=== PATIENT | male | born 1970 | race Caucasian/White ===

== ENCOUNTER 2023-02-25 18:40 | Inpatient (IN) ==
[2023-02-25] MEDS ORDERED: PANTOprazole 40 MG in DEXTROSE 5% MINI-B 100 ML IV STA (19:20)
[2023-02-25] MEDS ORDERED: FAMOTIDINE 20MG IV PUSH 20 MG/5 ML SYR IV STA (19:20)
[2023-02-25] MEDS ORDERED: SODIUM CHLORIDE 0.9% 1,000 ML IV STA (19:20)
[2023-02-25] MEDS ORDERED: PANTOprazole 80 MG in DEXTROSE 5% 100 ML IV ONE (19:20)
[2023-02-25] MEDS ORDERED: PANTOprazole 80 MG in DEXTROSE 5% 100 ML IV STA (19:20)
[2023-02-25 19:28] LABS: Hematocrit (blood only) 32.8 % (42.0-52.0); Hemoglobin 10.9 g/dl (14.0-18.0); Mean Corpuscular Hemoglobin 30.5 pg (25.0-34.0); Mean Corpuscular Hgb Conc 33.2 g/dL (32.0-36.0); Mean Corpuscular Volume 91.9 fL (80.0-100.0); Mean Platelet Volume 9.9 fL (9.4-12.4); Platelet Count 342 K/uL (130-400); RDW Coefficient of Variation 12.7 % (11.5-14.5); RDW Standard Deviation 42.1 fL (36.4-46.3); Red Blood Count 3.57 M/uL (4.70-6.10)
[2023-02-25] MEDS ORDERED: SODIUM CHLORIDE 0.9% 500 ML IV SCH (19:30)
[2023-02-25 19:43] LABS: Albumin Globulin Ratio 1.5 (0.9-2); Albumin Level 3.7 gm/dl (3.4-5.0); BUN Creatinine Ratio 60.4 (10-20); Bilirubin,Total 0.3 mg/dl (0.2-1.0); Calcium 8.6 mg/dl (8.6-10.3); Creatinine Clr Calc Pharmacy 91.1 ml/min; Est GFR (African American) 93.1 ml/min; Est GFR (Non-African American) 80.3 ml/min; Globulin 2.5 gm/dl (2.5-4.0); Potassium 4.7 mmol/L (3.5-5.1); Total Protein 6.2 gm/dl (6.0-8.3)
[2023-02-25] MEDS ORDERED: PANTOprazole 40 MG in DEXTROSE 5% MINI-B 100 ML IV SCH (19:45)
[2023-02-25 19:51] LABS: Basophils # (auto) 0.08 K/uL (0.00-0.20); Basophils % (auto) 0.5 %; Eosinophils # (auto) 0.07 K/uL (0.00-0.50); Eosinophils % (auto) 0.5 %; Immature Granulocytes # (auto) 0.16 K/uL (0.01-0.20); Immature Granulocytes % (auto) 1.1 %; Lymphocytes # (auto) 4.14 K/uL (1.20-3.40); Lymphocytes % (auto) 27.6 %; Monocytes # (auto) 0.91 K/uL (0.11-0.59); Monocytes % (auto) 6.1 %; Neutrophils # (auto) 9.64 K/uL (1.40-6.50); Neutrophils % (auto) 64.2 %
--- NOTE | 2023-02-25 20:04 | Emergency Department Note ---
Impression & Plan Acute upper gastrointestinal bleeding, Syncope and collapse, Acute upper abdominal pain ED Provider Note NAME: DEMOND MANN AGE: 52 SEX: Male INFORMANT: Patient ED PROVIDER(S): Juliocesar Waters MD CHIEF COMPLAINT: Seizure-like activity PLAN: Disposition: Admitted Outpatient prescription management: none Referral: None MEDICAL DECISION MAKING: patient presented because of An unwitnessed episode of passing out with possibly some shaking. Patient states he did feel lightheaded prior to the event. Does not remember the event itself. He does note having some dark stools recently and because of this he was monitored. ECG performed and did not reveal any ischemia. Patient was borderline tachycardic on cardiac monitoring and his blood pressure was hypotensive initially. Patient states he normally is very hypertensive. Rectal examination was Hemoccult positive and stools were dark. Patient had abdominal pain on examination. He was started on IV fluids. The patient was given IV Pepcid and an IV Protonix bolus and drip. Patient was typed and screened. CT imaging of the abdomen pelvis was ordered. This did raise concerns about positive ulcer without perforation. Patient will need further management in the hospital. He was reassessed and was hemodynamically stable. Consultation was made with Dr. Aleks Hernandez, [facility] hospitalist service. Patient was evaluated in the ER admitted for further management. 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 Vital Signs: reviewed and remarkable for borderline tachycardia Additional History obtained from: none Chronic Medical/Social Conditions affecting care: Mood disorder, hypertension Prior/ Outside/ External records reviewed: none Differential Diagnosis: Vasovagal event, dehydration, infection, hypoglycemia, electrolyte abnormalities, cardiac sources, intracerebral event, pulmonary embolism, seizure, toxicologic, neurologic, as well as other pathologies. Diagnostics, independently interpreted by me: EC Lead ECG performed and revealed Normal sinus rhythm at 100, normal [place], QRS normal. No elevation or depression. No PACs or PVCs Cardiac Monitoring: Cardiac monitoring ordered by me: The patient was placed on continuous cardiac monitoring and observed. It revealed a normal sinus rhythm at 98 beats per minute without ectopy or evidence of dysrhythmia. Medical decision rules: none Imaging studies: CT scan as above. Findings concerning for possible ulcer without signs of perforation. HPI: 52 year old Male arrives for evaluation of possible seizure-like episode. Patient had an episode where he fell out and was unconscious. Patient states he was told that he had some shaking-like movements when he was found by staff. Patient is currently an inpatient voluntarily at the [facility]. Patient does note a history of ulcers but denies any prior EGD or surgery. Patient states he has not been using a lot of NSAIDs. He is not on any blood thinners. He has had dark stools recently. He did note some upper abdominal pain today. Pt denies LOC, headache, fevers, chills, diaphoresis, visual changes, neck pain, chest pain, breathing difficulties, nausea, vomiting, back pain, hematochezia, urinary symptoms, numbness, weakness, lymphadenopathy, rash, or other complaints.. PAST MEDICAL HISTORY: See Below, hypertension PAST SURGICAL HISTORY: See Below, SOCIAL HISTORY: See Below, prior methamphetamine use HOME MEDICATIONS: See Below ALLERGIES: See Below VITALS: See Below PHYSICAL EXAMINATION: GENERAL: Awake, alert, well-appearing, in no distress HENT: Normocephalic, atraumatic. Oropharynx unremarkable. EYES: Normal conjunctiva. Sclera non-icteric. NECK: Inspection normal. Non-tender. Supple. No nuchal rigidity. FROM. No masses. RESPIRATORY: Clear to auscultation. No wheezes. No rales. Normal respiratory effort. CARDIAC: Borderline tachycardic rate. Normal rhythm. No murmurs. No rubs. Extremities warm and well perfused. Pulses equal. No JVD. GI: Soft, non-distended. No tenderness to palpation. No rebound or guarding. No masses. RECTAL: Dark stool. Hemoccult positive. MUSCULOSKELETAL: Atraumatic. Chest examination reveals no tenderness. The back is symmetrical on inspection without obvious abnormality. There is no CVA tenderness to palpation. No joint edema. LOWER EXTREMITIES: Calves are equal size bilaterally and non-tender. No edema. No discoloration. NEURO: Normal sensorium. No sensory or motor deficits noted. SKIN: No rash or jaundice noted. PROCEDURES: none CRITICAL CARE: I have personally spent 35 minutes of critical care time in the direct management of this patient. This includes bedside care, interpretation of diagnostic studies, and testing, discussion with consultants, patient, and other required patient management activities. These minutes are in excess of all separately billable procedures. OBSERVATION NOTE: none Past Med/Surg History Social History Smoking Status: Unknown if ever smoked Allergies Allergies Allergy/AdvReac Type Severity Reaction Status Date / Time No Known Allergies Allergy Verified 02/25/23 19:01 Home Meds Home Medications Medication Instructions Recorded Confirmed acetaminophen 325 mg tablet 487.5 mg PO TID PRN Pain 02/25/23 02/25/23 (Tylenol) amlodipine 2.5 mg tablet 2.5 mg PO DAILY 02/25/23 02/25/23 aspirin 81 mg chewable tablet 81 mg PO DAILY 02/25/23 02/25/23 escitalopram oxalate 10 mg tablet 10 mg PO DAILY 02/25/23 02/25/23 (Lexapro) glipizide 5 mg tablet 5 mg PO DAILY 02/25/23 02/25/23 lisinopril 2.5 mg tablet 7.5 mg PO DAILY 02/25/23 02/25/23 metformin 1,000 mg tablet 1,000 mg PO BIDM 02/25/23 02/25/23 nicotine 21 mg/24 hr daily 1 patch transdermal DAILY 02/25/23 02/25/23 transdermal patch trazodone 150 mg tablet 150 mg PO HS 02/25/23 02/25/23 Results & Data (ED) Vital Signs Vital Signs - 24 hr 02/25/23 18:50 02/25/23 19:32 02/25/23 19:40 Temperature 36.8 C Temperature Source Oral Pulse Rate 86 94 H Pulse Rate from SpO2 Sensor 100 H 93 H Respiratory Rate 24 24 Blood Pressure Blood Pressure Mean Pulse Oximetry 96 98 Sepsis Recent Fever Within 48 Hours No Sepsis New/Unexplained Change in Mental Status No Sepsis Action Taken by Nursing No Action Required 02/25/23 19:50 02/25/23 20:00 02/25/23 20:00 Temperature Temperature Source Pulse Rate 95 H 87 Pulse Rate from SpO2 Sensor 97 H 88 Respiratory Rate 23 19 Blood Pressure 116/77 Blood Pressure Mean 88 Pulse Oximetry 99 99 Sepsis Recent Fever Within 48 Hours Sepsis New/Unexplained Change in Mental Status Sepsis Action Taken by Nursing 02/25/23 20:30 02/25/23 21:00 02/25/23 21:30 Temperature Temperature Source Pulse Rate 90 92 H 95 H Pulse Rate from SpO2 Sensor 91 H 93 H 94 H Respiratory Rate 19 22 24 Blood Pressure 116/84 105/79 107/78 Blood Pressure Mean 94 87 87 Pulse Oximetry 97 97 97 Sepsis Recent Fever Within 48 Hours Sepsis New/Unexplained Change in Mental Status Sepsis Action Taken by Nursing 02/25/23 22:30 02/25/23 22:30 Temperature Temperature Source Pulse Rate 97 H Pulse Rate from SpO2 Sensor Respiratory Rate 21 Blood Pressure 98/76 L Blood Pressure Mean 90 Pulse Oximetry Sepsis Recent Fever Within 48 Hours Sepsis New/Unexplained Change in Mental Status Sepsis Action Taken by Nursing Laboratory Data 02/25/23 22:57 02/25/23 18:50 Lab Results 02/25/23 02/25/23 02/25/23 Range/Units 18:50 19:33 20:21 WBC 15.00 H (4.8-10.8) K/ul RBC 3.57 L (4.70-6.10) M/uL Hgb 10.9 L (14.0-18.0) g/dl Hct 32.8 L (42.0-52.0) % MCV 91.9 (80.0-100.0) fL MCH 30.5 (25.0-34.0) pg MCHC 33.2 (32.0-36.0) g/dL RDW Std Deviation 42.1 (36.4-46.3) fL RDW Coeff of Aleksander 12.7 (11.5-14.5) % Plt Count 342 (130-400) K/uL MPV 9.9 (9.4-12.4) fL Immature Gran % (Auto) 1.1 % Neut % (Auto) 64.2 % Lymph % (Auto) 27.6 % Alfalfa % (Auto) 6.1 % Eos % (Auto) 0.5 % Baso % (Auto) 0.5 % Neut # (Auto) 9.64 H (1.40-6.50) K/uL Lymph # (Auto) 4.14 H (1.20-3.40) K/uL Alfalfa # (Auto) 0.91 H (0.11-0.59) K/uL Eos # (Auto) 0.07 (0.00-0.50) K/uL Baso # (Auto) 0.08 (0.00-0.20) K/uL Immature Gran # (Auto) 0.16 (0.01-0.20) K/uL PT 11.0 (9.0-12.0) Seconds INR 1.0 (0.9-1.1) APTT 23.1 (21.0-31.0) Seconds PTT Ratio 0.8 Sodium 140 (136-145) mmol/L Potassium 4.7 (3.5-5.1) mmol/L Chloride 108 H (98-107) mmol/L Carbon Dioxide 25 (21-32) mmol/L Anion Gap 7 (3-11) BUN 64 H (6-23) mg/dl Creatinine 1.06 (0.6-1.4) mg/dl Est Cr Clr Drug Dosing 91.1 ml/min Est GFR ( Amer) 93.1 ml/min Est GFR (Non-Af Amer) 80.3 ml/min BUN/Creatinine Ratio 60.4 H (10-20) Glucose 152 H (70-99(Fasting)) mg/dl Calcium 8.6 (8.6-10.3) mg/dl Magnesium 1.7 (1.7-2.4) mg/dl Total Bilirubin 0.3 (0.2-1.0) mg/dl AST 11 L (13-39) U/L ALT 15 (7-52) U/L Alkaline Phosphatase 72 (34-104) U/L Troponin I High Sens 3.8 (0-20) pg/ml Total Protein 6.2 (6.0-8.3) gm/dl Albumin 3.7 (3.4-5.0) gm/dl Globulin 2.5 (2.5-4.0) gm/dl Albumin/Globulin Ratio 1.5 (0.9-2) SARS-CoV-2, RNA, NAAT NEGATIVE (NEGATIVE) Blood Type A Positive Antibody Screen NEGATIVE Crossmatch See Detail Administered Medications Lactated Ringer's (Lr) 1,000 mls @ 100 mls/hr IV .Q10H ONE Stop: 02/26/23 09:29 Last Admin: 02/26/23 00:16 Dose: 100 mls/hr Documented By: LAST Insulin Aspart (Insulin Aspart Per Unit Charge) 0 units SC Q6 [place] Stop: 03/28/23 00:00 Last Admin: 02/26/23 00:17 Dose: Not Given Documented By: LAST Co-signed By: YESSI Discontinued Medications Acetaminophen (Acetaminophen 325 Mg Tab) 650 mg PO NOW STA Stop: 02/25/23 21:40 Last Admin: 02/25/23 22:30 Dose: 650 mg Documented By: CPB Sodium Chloride (Nss) 500 mls @ 999 mls/hr IV .Q31M [place] Stop: 02/25/23 20:00 Last Infusion: 02/25/23 22:36 Dose: Infused Documented By: Admin: 02/25/23 20:00 Dose: 999 mls/hr Documented By: ARS Sodium Chloride (Nss) 1,000 mls @ 250 mls/hr IV .Q4H STA Stop: 02/25/23 23:19 Last Admin: 02/25/23 22:31 Dose: 125 mls/hr Documented By: CPB Famotidine (Pepcid 20mg Iv Push) 20 mg in 5 mls @ 2.5 mls/min IV NOW STA Stop: 02/25/23 19:21 Last Admin: 02/25/23 19:47 Dose: 2.5 mls/min Documented By: CPB Pantoprazole Sodium 80 mg/ (Dextrose) 120 mls @ 480 mls/hr IV ONE STA Stop: 02/25/23 19:34 Last Infusion: 02/25/23 20:27 Dose: Infused Documented By: Admin: 02/25/23 19:59 Dose: 480 mls/hr Documented By: ARS Pantoprazole Sodium 80 mg/ (Dextrose) 120 mls @ 400 mls/hr IV NOW ONE Stop: 02/25/23 19:37 Last Infusion: 02/25/23 20:26 Dose: Infused Documented By: Admin: 02/25/23 19:50 Dose: 400 mls/hr Documented By: CPB Pantoprazole Sodium 40 mg/ (Dextrose) 100 mls @ 20 mls/hr IV Q5H STA Stop: 02/26/23 00:19 Last Infusion: 02/26/23 00:15 Dose: Infused Documented By: MWAngela Admin: 02/25/23 19:59 Dose: 8 mg/hr, 20 mls/hr Documented By: ARS Sodium Chloride (Nss) 1,000 mls @ 250 mls/hr IV .Q4H ONE Stop: 02/26/23 02:59 Last Admin: 02/25/23 23:31 Dose: Not Given Documented By: LAST Ioversol (Optiray 320 500ml) 91 ml IV ONCE ONE Stop: 02/25/23 20:39 Last Admin: 02/25/23 20:38 Dose: 91 ml Documented By: ADELAIDE Imaging Data Radiologist's Impression: Abdomen/Pelvis CT 02/25/23 19:54 Exam(s): CT ABDOMEN + PELVIS With Contrast IV Amt: 91 ML [id number] EXAM: CT Abdomen and Pelvis With Intravenous Contrast CLINICAL HISTORY: Reason for exam: Upper GI bleed, syncope. TECHNIQUE: Axial computed tomography images of the abdomen and pelvis with intravenous contrast. CTDI is 21.67 mGy and DLP is 1143.82 mGy-cm. Automated exposure control was utilized for the study. A dose lowering technique was utilized adhering to the principles of ALARA. CONTRAST: Patient received 91 ML [id number] of IV contrast COMPARISON: No relevant prior studies available. FINDINGS: ABDOMEN: Liver: Unremarkable. Gallbladder and bile ducts: Unremarkable. Pancreas: Unremarkable. Spleen: Unremarkable. Adrenals: Unremarkable. Kidneys and ureters: Unremarkable. No obstructing stones. No hydronephrosis. Stomach and bowel: Inflammatory changes in the duodenum suggestive of duodenitis most commonly related to ulcer disease. PELVIS: Appendix: No findings to suggest acute appendicitis. Bladder: Unremarkable. Reproductive: Unremarkable as visualized. ABDOMEN and PELVIS: Intraperitoneal space: Unremarkable. No free air. No significant fluid collection. Bones/joints: No acute fracture. Soft tissues: Unremarkable. Vasculature: Unremarkable. Lymph nodes: Adenopathy within the periduodenal region. IMPRESSION: 1. Inflammatory changes in the duodenum suggestive of duodenitis most commonly related to ulcer disease. 2. Adenopathy within the periduodenal region. May be reactive however consider further imaging in 3-6 months. Electronically signed by: Fabricio Cisneros MD 02/25/23 21:[address] 02/25/23 21:38 Exam(s): CT HEAD Without Contrast EXAM: CT Head Without Intravenous Contrast CLINICAL HISTORY: Reason for exam: watson, syncope, asa. TECHNIQUE: Axial computed tomography images of the head/brain without intravenous contrast. CTDI is 38 mGy and DLP is 702.46 mGy-cm. Automated exposure control was utilized for the study. A dose lowering technique was utilized adhering to the principles of ALARA. COMPARISON: No relevant prior studies available. FINDINGS: Brain: No hemorrhage, extra-axial fluid collection, mass effect, or edema. Ventricles: Unremarkable. Bones/joints: Unremarkable. No fracture. Soft tissues: Unremarkable. Sinuses: No acute sinusitis. Mastoid air cells: Unremarkable as visualized. IMPRESSION: 1. No acute intracranial abnormality. Electronically signed by: Fabricio Cisneros MD 02/25/23 22:48 PM Discharge Plan Visit Data Chief Complaint: Seizure ED Provider: Juliocesar Waters Discharge Problem: Acute upper gastrointestinal bleeding, Syncope and collapse, Acute upper abdominal pain Patient Disposition: Admitted As Inpatient Discharge Instructions Interventions: ED Discharge Assessment Last Done: 02/25/23 23:33
[2023-02-25 20:29] LABS: Partial Thromboplastin Ratio 0.8; Partial Thromboplastin Time 23.1 Seconds (21.0-31.0)
[2023-02-25] MEDS ORDERED: OPTIRAY 320 500ml IV ONE (20:38)
[2023-02-25] MEDS ORDERED: ACETAMINOPHEN 325 MG TAB PO STA (21:39)
--- NOTE | 2023-02-25 21:58 | CT Scan Report ---
Exam(s): CT ABDOMEN + PELVIS With Contrast IV Amt: 91 ML [id number] EXAM: CT Abdomen and Pelvis With Intravenous Contrast CLINICAL HISTORY: Reason for exam: Upper GI bleed, syncope. TECHNIQUE: Axial computed tomography images of the abdomen and pelvis with intravenous contrast. CTDI is 21.67 mGy and DLP is 1143.82 mGy-cm. Automated exposure control was utilized for the study. A dose lowering technique was utilized adhering to the principles of ALARA. CONTRAST: Patient received 91 ML [id number] of IV contrast COMPARISON: No relevant prior studies available. FINDINGS: ABDOMEN: Liver: Unremarkable. Gallbladder and bile ducts: Unremarkable. Pancreas: Unremarkable. Spleen: Unremarkable. Adrenals: Unremarkable. Kidneys and ureters: Unremarkable. No obstructing stones. No hydronephrosis. Stomach and bowel: Inflammatory changes in the duodenum suggestive of duodenitis most commonly related to ulcer disease. PELVIS: Appendix: No findings to suggest acute appendicitis. Bladder: Unremarkable. Reproductive: Unremarkable as visualized. ABDOMEN and PELVIS: Intraperitoneal space: Unremarkable. No free air. No significant fluid collection. Bones/joints: No acute fracture. Soft tissues: Unremarkable. Vasculature: Unremarkable. Lymph nodes: Adenopathy within the periduodenal region. IMPRESSION: 1. Inflammatory changes in the duodenum suggestive of duodenitis most commonly related to ulcer disease. 2. Adenopathy within the periduodenal region. May be reactive however consider further imaging in 3-6 months. Electronically signed by: Fabricio Cisneros MD 02/25/23 21:57 PM
[2023-02-25 22:00] LABS: Magnesium 1.7 mg/dl (1.7-2.4)
--- NOTE | 2023-02-25 22:32 | History & Physical Report ---
Date of Service February 25, 2023 Assessment & Plan (1) Acute upper gastrointestinal bleeding: Plan: Differentials include PUD, gastritis, tumor Syncope likely secondary to orthostasis secondary to GI bleed Aspirin recently prescribed at psychiatric facility following patient request. Anemia secondary to above Normal baseline hemoglobin of 14 noted last February 22 at [facility] ER DM 2 recently started on oral medications, unknown baseline control Mood disorder, patient currently not suicidal Ongoing tobacco abuse Medical telemetry IV PPI GI consult re: UGIB N.p.o. until patient seen by GI in anticipation of endoscopy Transfuse PRBC if hemoglobin less than 7 IVF Stop aspirin Appropriate hold BP meds for now ISS BG goal 1 10-1 40, check hemoglobin A1c Nicotine patch as needed DVT prophylaxis. SCDs Re: GI bleed Full code Text document was generated using [employer] voice recognition software. It may contain grammatical or spelling errors. Kindly contact undersigned for clarification of any documentation item in question. History of Present Illness Chief Complaint: Syncope, melena Primary Care Provider: None History obtained from patient and records. Medical history significant for hypertension, DM 2 recently started on oral medications, mood disorder, ongoing tobacco abuse. Patient is a resident of [facility] who has been voluntarily re-admitted for at the local [facility] for suicidality last 02/22/2023 following evaluation at [facility]. Patient does not really take home medications due to lack of PCP but was started on new blood pressure and diabetes medications along with mood meds at the facility. Patient requested [facility] provider to prescribe him aspirin as well to protect him from heart attacks and strokes due to his family history. Yesterday, patient noted achy frontal headache symptoms. Patient noted lightheadedness symptoms today. Achy abdominal pain on the sides followed by melanotic stools. No hematemesis/coffee-ground emesis. No chest pain. Admits to shortness of breath on exertion. Syncopal event without obvious generalized tonic-clonic seizures, incontinence or tongue biting. SBP noted to be 90s at the facility. Transient melena episode last year leading to patient evaluation at an ER close to his home. Patient told he could have ulcers and was discharged on some unrecalled stomach medication. Melena episode resolved. Involuntary 10 pound weight loss secondary to poor appetite last month as per p atient. Patient brought to the ER for evaluation. IV PPI initiated at the ER. 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 Allergies Allergy/AdvReac Type Severity Reaction Status Date / Time No Known Allergies Allergy Verified 02/25/23 19:01 Home Medications Medication Instructions Recorded Confirmed Type acetaminophen 325 mg tablet 487.5 mg PO TID PRN Pain 02/25/23 02/25/23 History (Tylenol) amlodipine 2.5 mg tablet 2.5 mg PO DAILY 02/25/23 02/25/23 History aspirin 81 mg chewable tablet 81 mg PO DAILY 02/25/23 02/25/23 History escitalopram oxalate 10 mg tablet 10 mg PO DAILY 02/25/23 02/25/23 History (Lexapro) glipizide 5 mg tablet 5 mg PO DAILY 02/25/23 02/25/23 History lisinopril 2.5 mg tablet 7.5 mg PO DAILY 02/25/23 02/25/23 History metformin 1,000 mg tablet 1,000 mg PO BIDM 02/25/23 02/25/23 History nicotine 21 mg/24 hr daily 1 patch transdermal DAILY 02/25/23 02/25/23 History transdermal patch trazodone 150 mg tablet 150 mg PO HS 02/25/23 02/25/23 History Past Med/Surg History Social History Smoking Status: Current every day smoker Tobacco Type: Cigarettes and E-cigarettes / Vaping Second Hand Exposure: Yes; Do You Dip or Chew Tobacco: No; Tobacco Cessation Education Requested by Patient: No Hx Alcohol Use: No Hx Substance Use: Yes Last Used Substance Other:: January 22 last use Preferred Language: Mexican Communication Ability: Effective Intelligence Officer Basic Required: No Beliefs That Will Affect Care: None Current Living Situation: Alone Current Living Situation Comment: homeless Other Information That Helps Us Care for You: No Feels Safe at Home: Yes Safety Concerns: Feels Safe At This Time Assistive Devices: None Review of Systems Review of Systems: As per HPI, all other systems reviewed and negative Physical Exam Physical Exam: GENERAL: Comfortable, pleasant, obese, no respiratory distress SKIN: Pallor, warm HEENT: Pale palpebral conjunctivae, no ptosis, dry buccal mucosa NECK : Supple, no tenderness CHEST : CTA, no tenderness HEART : RRR, no obvious murmurs ABDOMEN: Some distention, minimal epigastric tenderness EXTREMITIES : Abrasion over RUE, no LE swelling/tenderness, no other conspicuous deformities noted NEUROLOGIC : Coherent, no facial asymmetry, no other gross focality Results & Data Results & Data Vital Signs (Past 12 Hours) Vital Signs Temp Pulse Resp BP Pulse Ox 02/25/23 21:30 95 H 24 107/78 97 02/25/23 21:00 92 H 22 105/79 97 02/25/23 20:30 90 19 116/84 97 02/25/23 20:00 116/77 02/25/23 20:00 87 19 99 02/25/23 19:50 95 H 23 99 02/25/23 19:40 94 H 24 98 02/25/23 19:32 86 24 96 02/25/23 18:50 36.8 C Laboratory Results Laboratory Results WBC 15.00 K/ul (4.8-10.8) H 02/25/23 18:50 RBC 3.57 M/uL (4.70-6.10) L 02/25/23 18:50 Hgb 10.9 g/dl (14.0-18.0) L 02/25/23 18:50 Hct 32.8 % (42.0-52.0) L 02/25/23 18:50 MCV 91.9 fL (80.0-100.0) 02/25/23 18:50 MCH 30.5 pg (25.0-34.0) 02/25/23 18:50 MCHC 33.2 g/dL (32.0-36.0) 02/25/23 18:50 RDW Std Deviation 42.1 fL (36.4-46.3) 02/25/23 18:50 RDW Coeff of Aleksander 12.7 % (11.5-14.5) 02/25/23 18:50 Plt Count 342 K/uL (130-400) 02/25/23 18:50 MPV 9.9 fL (9.4-12.4) 02/25/23 18:50 Immature Gran % (Auto) 1.1 % 02/25/23 18:50 Neut % (Auto) 64.2 % 02/25/23 18:50 Lymph % (Auto) 27.6 % 02/25/23 18:50 [place] % (Auto) 6.1 % 02/25/23 18:50 Eos % (Auto) 0.5 % 02/25/23 18:50 Baso % (Auto) 0.5 % 02/25/23 18:50 Neut # (Auto) 9.64 K/uL (1.40-6.50) H 02/25/23 18:50 Lymph # (Auto) 4.14 K/uL (1.20-3.40) H 02/25/23 18:50 [place] # (Auto) 0.91 K/uL (0.11-0.59) H 02/25/23 18:50 Eos # (Auto) 0.07 K/uL (0.00-0.50) 02/25/23 18:50 Baso # (Auto) 0.08 K/uL (0.00-0.20) 02/25/23 18:50 Immature Gran # (Auto) 0.16 K/uL (0.01-0.20) 02/25/23 18:50 PT 11.0 Seconds (9.0-12.0) 02/25/23 19:33 INR 1.0 (0.9-1.1) 02/25/23 19:33 APTT 23.1 Seconds (21.0-31.0) 02/25/23 19:33 PTT Ratio 0.8 02/25/23 19:33 Sodium 140 mmol/L (136-145) 02/25/23 18:50 Potassium 4.7 mmol/L (3.5-5.1) 02/25/23 18:50 Chloride 108 mmol/L (98-107) H 02/25/23 18:50 Carbon Dioxide 25 mmol/L (21-32) 02/25/23 18:50 Anion Gap 7 (3-11) 02/25/23 18:50 BUN 64 mg/dl (6-23) H 02/25/23 18:50 Creatinine 1.06 mg/dl (0.6-1.4) 02/25/23 18:50 Est Cr Clr Drug Dosing 91.1 ml/min 02/25/23 18:50 Est GFR ( Amer) 93.1 ml/min 02/25/23 18:50 Est GFR (Non-Af Amer) 80.3 ml/min 02/25/23 18:50 BUN/Creatinine Ratio 60.4 (10-20) H 02/25/23 18:50 Glucose 152 mg/dl (70-99(Fasting)) H 02/25/23 18:50 Calcium 8.6 mg/dl (8.6-10.3) 02/25/23 18:50 Magnesium 1.7 mg/dl (1.7-2.4) 02/25/23 18:50 Total Bilirubin 0.3 mg/dl (0.2-1.0) 02/25/23 18:50 AST 11 U/L (13-39) L 02/25/23 18:50 ALT 15 U/L (7-52) 02/25/23 18:50 Alkaline Phosphatase 72 U/L (34-104) 02/25/23 18:50 Troponin I High Sens 3.8 pg/ml (0-20) 02/25/23 19:33 Total Protein 6.2 gm/dl (6.0-8.3) 02/25/23 18:50 Albumin 3.7 gm/dl (3.4-5.0) 02/25/23 18:50 Globulin 2.5 gm/dl (2.5-4.0) 02/25/23 18:50 Albumin/Globulin Ratio 1.5 (0.9-2) 02/25/23 18:50 SARS-CoV-2, RNA, NAAT NEGATIVE (NEGATIVE) 02/25/23 20:21 Blood Type A Positive 02/25/23 19:33 Antibody Screen NEGATIVE 02/25/23 19:33 Impressions Abdomen/Pelvis CT 02/25/23 19:54 Exam(s): CT ABDOMEN + PELVIS With Contrast IV Amt: 91 ML [id number] EXAM: CT Abdomen and Pelvis With Intravenous Contrast CLINICAL HISTORY: Reason for exam: Upper GI bleed, syncope. TECHNIQUE: Axial computed tomography images of the abdomen and pelvis with intravenous contrast. CTDI is 21.67 mGy and DLP is 1143.82 mGy-cm. Automated exposure control was utilized for the study. A dose lowering technique was utilized adhering to the principles of ALARA. CONTRAST: Patient received 91 ML [id number] of IV contrast COMPARISON: No relevant prior studies available. FINDINGS: ABDOMEN: Liver: Unremarkable. Gallbladder and bile ducts: Unremarkable. Pancreas: Unremarkable. Spleen: Unremarkable. Adrenals: Unremarkable. Kidneys and ureters: Unremarkable. No obstructing stones. No hydronephrosis. Stomach and bowel: Inflammatory changes in the duodenum suggestive of duodenitis most commonly related to ulcer disease. PELVIS: Appendix: No findings to suggest acute appendicitis. Bladder: Unremarkable. Reproductive: Unremarkable as visualized. ABDOMEN and PELVIS: Intraperitoneal space: Unremarkable. No free air. No significant fluid collection. Bones/joints: No acute fracture. Soft tissues: Unremarkable. Vasculature: Unremarkable. Lymph nodes: Adenopathy within the periduodenal region. IMPRESSION: 1. Inflammatory changes in the duodenum suggestive of duodenitis most commonly related to ulcer disease. 2. Adenopathy within the periduodenal region. May be reactive however consider further imaging in 3-6 months. Electronically signed by: Fabricio Cisneros MD 02/25/23 21:57 PM Diagnostic Findings EKG as per my interpretation : Rate 100, NSR, normal axis, no ischemia
[2023-02-25] MEDS ORDERED: SODIUM CHLORIDE 0.9% 250 ML IV PRN (22:37)
--- NOTE | 2023-02-25 22:49 | CT Scan Report ---
Exam(s): CT HEAD Without Contrast EXAM: CT Head Without Intravenous Contrast CLINICAL HISTORY: Reason for exam: watson, syncope, asa. TECHNIQUE: Axial computed tomography images of the head/brain without intravenous contrast. CTDI is 38 mGy and DLP is 702.46 mGy-cm. Automated exposure control was utilized for the study. A dose lowering technique was utilized adhering to the principles of ALARA. COMPARISON: No relevant prior studies available. FINDINGS: Brain: No hemorrhage, extra-axial fluid collection, mass effect, or edema. Ventricles: Unremarkable. Bones/joints: Unremarkable. No fracture. Soft tissues: Unremarkable. Sinuses: No acute sinusitis. Mastoid air cells: Unremarkable as visualized. IMPRESSION: 1. No acute intracranial abnormality. Electronically signed by: Fabricio Cisneros MD 02/25/23 22:48 PM
[2023-02-25] MEDS ORDERED: SODIUM CHLORIDE 0.9% 1,000 ML IV ONE (23:00)
[2023-02-25] MEDS ORDERED: oxyCODONE HCL IR 5 MG TAB (IMMEDIATE RELEASE) PO PRN (23:05)
[2023-02-25] MEDS ORDERED: ACETAMINOPHEN 325 MG TAB PO PRN (23:05)
[2023-02-25] MEDS ORDERED: PROMETHAZINE HCL 12.5 MG in SODIUM CHLORIDE 0.9% 50 ML IV PRN (23:05)
[2023-02-25 23:11] LABS: Hematocrit (blood only) 31.4 % (42.0-52.0); Hemoglobin 10.6 g/dl (14.0-18.0)
[2023-02-25] MEDS ORDERED: LACTATED RINGER'S 1,000 ML IV ONE (23:30)
[2023-02-25] MEDS ORDERED: GLUCOSE 40% GEL 15 GM TUBE PO PRN (23:32)
[2023-02-25] MEDS ORDERED: DEXTROSE 50% 50 ML SYRINGE IV PRN (23:32)
[2023-02-25] MEDS ORDERED: GLUCAGON FOR INJ 1 MG VIAL SQ PRN (23:32)
[2023-02-25] MEDS ORDERED: CARBOHYDRATES FOR HYPOGLYCEMIA PO PRN (23:32)
[2023-02-25] MEDS ORDERED: GLUCOSE 10 TAB/TUBE PO PRN (23:32)
[2023-02-26] MEDS: INSULIN ASPART PER UNIT CHARGE SC SCH ×4 (00:17→19:08)
[2023-02-26 05:29] LABS: Appearance Urine Clear (Clear); Bilirubin Urine Negative (Negative); Blood Urine Negative (Negative); Color Urine Yellow; Glucose Urine UA Negative (Negative); Ketones Urine Negative (Negative); Leukocyte Esterase Urine Negative (Negative); Nitrite Urine Negative (Negative); Protein Urine Negative (Negative); Urobilinogen Urine Negative (Negative)
--- NOTE | 2023-02-26 07:35 | Hospitalist Progress Note ---
Date of Service February 26, 2023 Assessment & Plan (1) Acute upper gastrointestinal bleeding: (2) Acute blood loss anemia: (3) Syncope and collapse: (4) Complaint of melena: (5) Mood disorder: (6) DMII (diabetes mellitus, type 2): (7) Tobacco use disorder: Plan Differentials include PUD, gastritis, tumor Syncope likely secondary to orthostasis secondary to GI bleed Aspirin recently prescribed at psychiatric facility following patient request. Anemia secondary to above Normal baseline hemoglobin of 14 noted last February 22 at [facility] ER DM 2 recently started on oral medications, A1C of 8.0 reflects poor control. Cont basal/bolus insulin while admitted. Mood disorder, patient currently not suicidal Behavioral health liaison consult. Ongoing tobacco abuse Medical telemetry IV PPI GI consult re: UGIB Clear liquids today with plans for EGD in am. Transfuse PRBC if hemoglobin less than 7 Stop aspirin Appropriate hold BP meds for now Nicotine patch as needed DVT prophylaxis. SCDs Re: GI bleed Full code I spent a total of 60minutes coordinating, documenting, and providing care for this patient excluding time spent in the performance of separately billed services Alexus Carlos DO [facility] Hospitalist Admission and Anticipated Discharge Date Admission Date: February 25, 2023 Subjective 52 yo M presents with melena and syncope, clinical picture concerning for UGIB. He denies significant nausea or vomiting at this time. He does have some lightheadedness with standing and ambulating to the bathroom He has a h/o SI but reports not currently endorsing these He cuts and is currently seeking mental health support at the [facility], the facility he arrived from. He was fine with me consulting the Behavioral Health Liaison today. Physical Exam Physical Exam: CONSTITUTIONAL: WNWD, vitals as above, generally well-appearing, NAD EYES: normal conjunctivae, no scleral icterus ENT: external ear and nose normal, MMM NECK: trachea midline, RESPIRATORY: clear to auscultation bilaterally, no crackles, rales or wheezes, normal respiratory effort CARDIOVASCULAR: regular rate and rhythm, S1 and 2 heard without murmurs, gallops or rubs, no JVD, no peripheral edema CHEST: inspection of chest was normal GASTROINTESTINAL:soft, nontender, Nd, no guarding MUSCULOSKELETAL: strength 5/5 throughout, head is normocephalic and atraumatic, SKIN: warm and dry NEUROLOGIC: CN 2-12 grossly intact, no sensory deficit, normal cognition, normal speech, no tremor PSYCHIATRIC: alert cooperative and oriented to person, place and time. Euthymic mood, makes good eye contact, language grossly intact, recent and remote memory grossly intact. Results & Data Results & Data Vital Signs (Past 12 Hours) Vital Signs Pulse Resp BP Pulse Ox 02/26/23 07:26 80 02/26/23 05:00 108/80 02/26/23 05:00 81 16 97 02/26/23 04:30 76 12 98 02/26/23 04:30 132/73 02/26/23 04:00 79 16 98 02/26/23 04:00 133/93 02/26/23 03:30 86 17 98 02/26/23 03:30 124/89 02/26/23 03:00 74 15 98 02/26/23 03:00 107/79 02/26/23 02:30 74 15 98 02/26/23 02:30 113/75 02/26/23 02:00 93 H 15 98 02/26/23 02:00 118/83 02/26/23 01:30 117/80 02/26/23 01:30 85 13 99 02/26/23 01:00 80 14 97 02/26/23 01:00 115/82 02/26/23 00:30 84 15 96 02/26/23 00:30 118/78 02/26/23 00:00 123/87 02/26/23 00:00 86 17 97 02/25/23 23:30 80 16 97 02/25/23 23:30 112/73 02/25/23 23:20 87 02/25/23 23:01 89 15 95 02/25/23 23:01 144/87 H 02/25/23 23:00 91 H 16 96 02/25/23 22:30 97 H 21 02/25/23 22:30 98/76 L 02/25/23 21:30 95 H 24 107/78 97 02/25/23 21:00 92 H 22 105/79 97 02/25/23 20:30 90 19 116/84 97 02/25/23 20:00 116/77 02/25/23 20:00 87 19 99 02/25/23 19:50 95 H 23 99 02/25/23 19:40 94 H 24 98 Laboratory Results Short CBC 02/25/23 02/25/23 Range/Units 18:50 22:57 WBC 15.00 H (4.8-10.8) K/ul Hgb 10.9 L 10.6 L (14.0-18.0) g/dl Hct 32.8 L 31.4 L (42.0-52.0) % Plt Count 342 (130-400) K/uL BMP 02/25/23 18:50 Sodium 140 Potassium 4.7 Chloride 108 H Carbon Dioxide 25 BUN 64 H Creatinine 1.06 Glucose 152 H Calcium 8.6 Liver Function 02/25/23 Range/Units 18:50 Total Bilirubin 0.3 (0.2-1.0) mg/dl AST 11 L (13-39) U/L ALT 15 (7-52) U/L Alkaline Phosphatase 72 (34-104) U/L Albumin 3.7 (3.4-5.0) gm/dl Urine 02/26/23 Range/Units 05:20 Urine Color Yellow Urine Appearance Clear (Clear) Urine pH 5.0 (4.5-7.5) Ur Specific [place] 1.040 H (1.000-1.030) Urine Protein Negative (Negative) Urine Glucose (UA) Negative (Negative) Diagnostic Findings Abdomen/Pelvis CT 02/25/23 19:54 Exam(s): CT ABDOMEN + PELVIS With Contrast IV Amt: 91 ML [id number] EXAM: CT Abdomen and Pelvis With Intravenous Contrast CLINICAL HISTORY: Reason for exam: Upper GI bleed, syncope. TECHNIQUE: Axial computed tomography images of the abdomen and pelvis with intravenous contrast. CTDI is 21.67 mGy and DLP is 1143.82 mGy-cm. Automated exposure control was utilized for the study. A dose lowering technique was utilized adhering to the principles of ALARA. CONTRAST: Patient received 91 ML [id number] of IV contrast COMPARISON: No relevant prior studies available. FINDINGS: ABDOMEN: Liver: Unremarkable. Gallbladder and bile ducts: Unremarkable. Pancreas: Unremarkable. Spleen: Unremarkable. Adrenals: Unremarkable. Kidneys and ureters: Unremarkable. No obstructing stones. No hydronephrosis. Stomach and bowel: Inflammatory changes in the duodenum suggestive of duodenitis most commonly related to ulcer disease. PELVIS: Appendix: No findings to suggest acute appendicitis. Bladder: Unremarkable. Reproductive: Unremarkable as visualized. ABDOMEN and PELVIS: Intraperitoneal space: Unremarkable. No free air. No significant fluid collection. Bones/joints: No acute fracture. Soft tissues: Unremarkable. Vasculature: Unremarkable. Lymph nodes: Adenopathy within the periduodenal region. IMPRESSION: 1. Inflammatory changes in the duodenum suggestive of duodenitis most commonly related to ulcer disease. 2. Adenopathy within the periduodenal region. May be reactive however consider further imaging in 3-6 months. Electronically signed by: Fabricio Cisneros MD 02/25/23 21:[address] 02/25/23 21:38 Exam(s): CT HEAD Without Contrast EXAM: CT Head Without Intravenous Contrast CLINICAL HISTORY: Reason for exam: watson, syncope, asa. TECHNIQUE: Axial computed tomography images of the head/brain without intravenous contrast. CTDI is 38 mGy and DLP is 702.46 mGy-cm. Automated exposure control was utilized for the study. A dose lowering technique was utilized adhering to the principles of ALARA. COMPARISON: No relevant prior studies available. FINDINGS: Brain: No hemorrhage, extra-axial fluid collection, mass effect, or edema. Ventricles: Unremarkable. Bones/joints: Unremarkable. No fracture. Soft tissues: Unremarkable. Sinuses: No acute sinusitis. Mastoid air cells: Unremarkable as visualized. IMPRESSION: 1. No acute intracranial abnormality. Electronically signed by: Fabricio Cisneros MD 02/25/23 22:48 PM
[2023-02-26 07:48] LABS: Hemoglobin 10.5 g/dl (14.0-18.0); Mean Corpuscular Hemoglobin 30.3 pg (25.0-34.0); Mean Corpuscular Hgb Conc 33.9 g/dL (32.0-36.0); Mean Corpuscular Volume 89.6 fL (80.0-100.0); Mean Platelet Volume 9.8 fL (9.4-12.4); Platelet Count 298 K/uL (130-400); RDW Coefficient of Variation 12.9 % (11.5-14.5); RDW Standard Deviation 41.9 fL (36.4-46.3); Red Blood Count 3.46 M/uL (4.70-6.10); White Blood Count 10.52 K/ul (4.8-10.8)
[2023-02-26 08:10] LABS: Basophils # (auto) 0.08 K/uL (0.00-0.20); Basophils % (auto) 0.8 %; Eosinophils # (auto) 0.14 K/uL (0.00-0.50); Eosinophils % (auto) 1.3 %; Immature Granulocytes # (auto) 0.08 K/uL (0.01-0.20); Immature Granulocytes % (auto) 0.8 %; Lymphocytes # (auto) 4.27 K/uL (1.20-3.40); Lymphocytes % (auto) 40.6 %; Monocytes # (auto) 0.71 K/uL (0.11-0.59); Monocytes % (auto) 6.7 %; Neutrophils # (auto) 5.24 K/uL (1.40-6.50); Neutrophils % (auto) 49.8 %
[2023-02-26 08:17] LABS: BUN Creatinine Ratio 41.9 (10-20); Calcium 8.8 mg/dl (8.6-10.3); Creatinine Clr Calc Pharmacy 91.5 ml/min; Est GFR (African American) 94.1 ml/min; Est GFR (Non-African American) 81.2 ml/min; Potassium 4.2 mmol/L (3.5-5.1)
[2023-02-26 08:24] LABS: Estimated Average Glucose 183 mg/dl
[2023-02-26] MEDS: PANTOprazole 40 MG in SYRINGE 0 ML IV SCH ×2 (08:39→21:10)
[2023-02-26] MEDS: ESCITALOPRAM OXALATE 10 MG TAB PO SCH (08:39)
--- NOTE | 2023-02-26 10:57 | Gastrointestinal Consultation ---
Date of Consultation February 26, 2023 Assessment & Plan (1) Complaint of melena: (2) Anemia: Plan 52-year-old male who experienced lightheadedness, syncope yesterday along with melena x2, and arrived with a hemoglobin of 10.5 and a mildly elevated BUN, unknown baseline labs. CT suggestive of duodenitis and some adenopathy near the duodenum. Differential diagnosis includes PUD, duodenitis, vs malignancy vs other. Currently abdomen is soft and nontender, vital signs are stable. He said no overt GI bleeding since yesterday. - Will plan EGD tomorrow to eval h/o melena, changes seen on CT - Would continue IV PPI - Trend H/H, transfuse PRN - Monitor and document GI output Clear liquid diet today, then n.p.o. at midnight - Would recommend repeat CTAP in 3-6 months pending EGD results Thank you for allowing us to participate in the care of this patient. Please call with any acute changes, questions or concerns. Please see addendum below with additional recommendation from my supervising physician. Supervising Physician Co-Signing Physician Notes Agree wtih PE as documented. ? ugib given reports of melena, recent initiation of asa, with a normocytic anemia and slight bun elevation, ct evidence of duodenitis. Hemodynamically stable. IV PPI today, npo after midnite for egd tomorrow for further evaluation. History of Present Illness Reason for Consultation: ugib Requesting Physician: Dr. Hernandez Attending Physician: Alexus Carlos DO History of Present Illness This is a 52-year-old male with PMH HTN, T2DM, recently started oral medicatio ns, mood disorder, tobacco abuse, who lives in [place], [place], recently admitted to the [facility] for suicidal ideations. He states that yesterday he began to have sweating and lightheadedness, and he states he passed out and had 2 black liquid stools and some abd discomfort. Upon arrival to the ER, hemoglobin was 10.6, unknown baseline, with BUN of 64. This a.m. Hgb remains 10.5, stable, with normal PLT, WBC, LFTs, INR. CTAP suggestive of inflammatory changes in the duodenum, along with adenopathy in the periduodenal region, consider follow-up imaging in 3 to [address] nonacute. He has had no GI output since being in the hospital. He remains hemodynamically stable. He states he feels better, no current syncope or presyncope. He states years ago he was told he may have a stomach ulcer and was given some kind of medication, but did not have an EGD. He states he had a colonoscopy in his 40s for what sounds like hematochezia, was attributable to hemorrhoids, he states the colonoscopy was unremarkable. This is not available in his chart to review. He does use tobacco. No alcohol. Denies AC or NSAID use. He takes a baby ASA. Surge Hx: Appendectomy No family history of GI malignancy. No prior history of melena He does endorse that lately his appetite hasn't been great. Normally has brown formed stools. No diarrhea. Currently denies any chest pain, shortness of breath, heartburn, dysphagia, nausea vomiting or hematemesis, hematochezia, abdominal pain, fevers or chills, syncope, dysuria or hematuria, leg edema, fevers or chills Allergies Allergy/AdvReac Type Severity Reaction Status Date / Time No Known Allergies Allergy Verified 02/25/23 19:01 Home Medications Medication Instructions Recorded Confirmed Type acetaminophen 325 mg tablet 487.5 mg PO TID PRN Pain 02/25/23 02/25/23 History (Tylenol) amlodipine 2.5 mg tablet 2.5 mg PO DAILY 02/25/23 02/25/23 History aspirin 81 mg chewable tablet 81 mg PO DAILY 02/25/23 02/25/23 History escitalopram oxalate 10 mg tablet 10 mg PO DAILY 02/25/23 02/25/23 History (Lexapro) glipizide 5 mg tablet 5 mg PO DAILY 02/25/23 02/25/23 History lisinopril 2.5 mg tablet 7.5 mg PO DAILY 02/25/23 02/25/23 History metformin 1,000 mg tablet 1,000 mg PO BIDM 02/25/23 02/25/23 History nicotine 21 mg/24 hr daily 1 patch transdermal DAILY 02/25/23 02/25/23 History transdermal patch trazodone 150 mg tablet 150 mg PO HS 02/25/23 02/25/23 History Patient History Social History Smoking Status: Current every day smoker Tobacco Type: Cigarettes and E-cigarettes / Vaping Second Hand Exposure: Yes; Do You Dip or Chew Tobacco: No; Tobacco Cessation Education Requested by Patient: No Hx Alcohol Use: No Hx Substance Use: Yes Last Used Substance Other:: January 22 last use Preferred Language: Surinamese Communication Ability: Effective Hydrodynamics Teacher Required: No Beliefs That Will Affect Care: None Current Living Situation: Alone Current Living Situation Comment: homeless Other Information That Helps Us Care for You: No Feels Safe at Home: Yes Safety Concerns: Feels Safe At This Time Assistive Devices: None Review of Systems Review of Systems: All systems reviewed & are unremarkable except as noted in HPI & below Physical Exam Constitutional: well developed, well nourished and comfortable; no acute distress Eyes: Sclera anicteric, no conjunctival injection ENMT: moist mucous membranes, no pallor Neck: trachea midline supple Respiratory: normal respiratory effort, lungs clear to auscultation Cardiovascular: RRR, no murmur, no edema Gastrointestinal (Abdomen): normal bowel sounds, soft, nontender, no hepatosplenomegaly Inspection/Auscultation: abdomen not distended Skin: no rashes, warm and dry Neurologic: alert and oriented x 3, no obvious focal neuro deficit Psychiatric: normal mood and affect Results & Data Vital Signs (Past 12 Hours) Vital Signs Pulse Pulse Resp BP BP Pulse Ox O2 Del Method 02/26/23 08:27 91 H 14 105/75 100 Room Air 02/26/23 07:40 77 15 93/60 L 98 Room Air 02/26/23 07:26 80 02/26/23 05:00 108/80 02/26/23 05:00 81 16 97 02/26/23 04:30 76 12 98 02/26/23 04:30 132/73 02/26/23 04:00 79 16 98 02/26/23 04:00 133/93 02/26/23 03:30 86 17 98 02/26/23 03:30 124/89 02/26/23 03:00 74 15 98 02/26/23 03:00 107/79 02/26/23 02:30 74 15 98 02/26/23 02:30 113/75 02/26/23 02:00 93 H 15 98 02/26/23 02:00 118/83 02/26/23 01:30 117/80 02/26/23 01:30 85 13 99 02/26/23 01:00 80 14 97 02/26/23 01:00 115/82 02/26/23 00:30 84 15 96 02/26/23 00:30 118/78 02/26/23 00:00 123/87 02/26/23 00:00 86 17 97 02/25/23 23:30 80 16 97 02/25/23 23:30 112/73 02/25/23 23:20 87 02/25/23 23:01 89 15 95 02/25/23 23:01 144/87 H 02/25/23 23:00 91 H 16 96 Laboratory Results 02/26/23 02/26/23 02/26/23 Range/Units 07:13 05:20 05:16 WBC 10.52 (4.8-10.8) K/ul RBC 3.46 L (4.70-6.10) M/uL Hgb 10.5 L (14.0-18.0) g/dl Hct 31.0 L (42.0-52.0) % MCV 89.6 (80.0-100.0) fL MCH 30.3 (25.0-34.0) pg MCHC 33.9 (32.0-36.0) g/dL RDW Std Deviation 41.9 (36.4-46.3) fL RDW Coeff of Aleksander 12.9 (11.5-14.5) % Plt Count 298 (130-400) K/uL MPV 9.8 (9.4-12.4) fL Immature Gran % (Auto) 0.8 % Neut % (Auto) 49.8 % Lymph % (Auto) 40.6 % [place] % (Auto) 6.7 % Eos % (Auto) 1.3 % Baso % (Auto) 0.8 % Neut # (Auto) 5.24 (1.40-6.50) K/uL Lymph # (Auto) 4.27 H (1.20-3.40) K/uL [place] # (Auto) 0.71 H (0.11-0.59) K/uL Eos # (Auto) 0.14 (0.00-0.50) K/uL Baso # (Auto) 0.08 (0.00-0.20) K/uL Immature Gran # (Auto) 0.08 (0.01-0.20) K/uL PT (9.0-12.0) Seconds INR (0.9-1.1) APTT (21.0-31.0) Seconds PTT Ratio Sodium 141 (136-145) mmol/L Potassium 4.2 (3.5-5.1) mmol/L Chloride 109 H (98-107) mmol/L Carbon Dioxide 28 (21-32) mmol/L Anion Gap 4 (3-11) BUN 44 H D (6-23) mg/dl Creatinine 1.05 (0.6-1.4) mg/dl Est Cr Clr Drug Dosing 91.5 ml/min Est GFR ( Amer) 94.1 ml/min Est GFR (Non-Af Amer) 81.2 ml/min BUN/Creatinine Ratio 41.9 H (10-20) Glucose 116 H (70-99(Fasting)) mg/dl POC Glucose 120 H (70-99) mg/dl Estimat Average Glucose mg/dl Hemoglobin A1c (4.5-5.6) % Lactate (0.4-2.0) mmol/L Calcium 8.8 (8.6-10.3) mg/dl Magnesium (1.7-2.4) mg/dl Total Bilirubin (0.2-1.0) mg/dl AST (13-39) U/L ALT (7-52) U/L Alkaline Phosphatase (34-104) U/L Troponin I High Sens (0-20) pg/ml Total Protein (6.0-8.3) gm/dl Albumin (3.4-5.0) gm/dl Globulin (2.5-4.0) gm/dl Albumin/Globulin Ratio (0.9-2) Urine Color Yellow Urine Appearance Clear (Clear) Urine pH 5.0 (4.5-7.5) Ur Specific Masterson 1.040 H (1.000-1.030) Urine Protein Negative (Negative) Urine Glucose (UA) Negative (Negative) Urine Ketones Negative (Negative) Urine Blood Negative (Negative) Urine Nitrite Negative (Negative) Urine Bilirubin Negative (Negative) Urine Urobilinogen Negative (Negative) Ur Leukocyte Esterase Negative (Negative) SARS-CoV-2, RNA, NAAT (NEGATIVE) Blood Type Blood Type Recheck Antibody Screen Crossmatch 02/26/23 02/25/23 02/25/23 Range/Units 00:02 22:57 20:21 WBC (4.8-10.8) K/ul RBC (4.70-6.10) M/uL Hgb 10.6 L (14.0-18.0) g/dl Hct 31.4 L (42.0-52.0) % MCV (80.0-100.0) fL MCH (25.0-34.0) pg MCHC (32.0-36.0) g/dL RDW Std Deviation (36.4-46.3) fL RDW Coeff of Aleksander (11.5-14.5) % Plt Count (130-400) K/uL MPV (9.4-12.4) fL Immature Gran % (Auto) % Neut % (Auto) % Lymph % (Auto) % [place] % (Auto) % Eos % (Auto) % Baso % (Auto) % Neut # (Auto) (1.40-6.50) K/uL Lymph # (Auto) (1.20-3.40) K/uL [place] # (Auto) (0.11-0.59) K/uL Eos # (Auto) (0.00-0.50) K/uL Baso # (Auto) (0.00-0.20) K/uL Immature Gran # (Auto) (0.01-0.20) K/uL PT (9.0-12.0) Seconds INR (0.9-1.1) APTT (21.0-31.0) Seconds PTT Ratio Sodium (136-145) mmol/L Potassium (3.5-5.1) mmol/L Chloride (98-107) mmol/L Carbon Dioxide (21-32) mmol/L Anion Gap (3-11) BUN (6-23) mg/dl Creatinine (0.6-1.4) mg/dl Est Cr Clr Drug Dosing ml/min Est GFR ( Amer) ml/min Est GFR (Non-Af Amer) ml/min BUN/Creatinine Ratio (10-20) Glucose (70-99(Fasting)) mg/dl POC Glucose 124 H (70-99) mg/dl Estimat Average Glucose 183 mg/dl Hemoglobin A1c 8.0 H (4.5-5.6) % Lactate 1.3 (0.4-2.0) mmol/L Calcium (8.6-10.3) mg/dl Magnesium (1.7-2.4) mg/dl Total Bilirubin (0.2-1.0) mg/dl AST (13-39) U/L ALT (7-52) U/L Alkaline Phosphatase (34-104) U/L Troponin I High Sens (0-20) pg/ml Total Protein (6.0-8.3) gm/dl Albumin (3.4-5.0) gm/dl Globulin (2.5-4.0) gm/dl Albumin/Globulin Ratio (0.9-2) Urine Color Urine Appearance (Clear) Urine pH (4.5-7.5) Ur Specific Masterson (1.000-1.030) Urine Protein (Negative) Urine Glucose (UA) (Negative) Urine Ketones (Negative) Urine Blood (Negative) Urine Nitrite (Negative) Urine Bilirubin (Negative) Urine Urobilinogen (Negative) Ur Leukocyte Esterase (Negative) SARS-CoV-2, RNA, NAAT NEGATIVE (NEGATIVE) Blood Type Blood Type Recheck A Positive Antibody Screen Crossmatch 02/25/23 02/25/23 Range/Units 19:33 18:50 WBC 15.00 H (4.8-10.8) K/ul RBC 3.57 L (4.70-6.10) M/uL Hgb 10.9 L (14.0-18.0) g/dl Hct 32.8 L (42.0-52.0) % MCV 91.9 (80.0-100.0) fL MCH 30.5 (25.0-34.0) pg MCHC 33.2 (32.0-36.0) g/dL RDW Std Deviation 42.1 (36.4-46.3) fL RDW Coeff of Aleksander 12.7 (11.5-14.5) % Plt Count 342 (130-400) K/uL MPV 9.9 (9.4-12.4) fL Immature Gran % (Auto) 1.1 % Neut % (Auto) 64.2 % Lymph % (Auto) 27.6 % [place] % (Auto) 6.1 % Eos % (Auto) 0.5 % Baso % (Auto) 0.5 % Neut # (Auto) 9.64 H (1.40-6.50) K/uL Lymph # (Auto) 4.14 H (1.20-3.40) K/uL [place] # (Auto) 0.91 H (0.11-0.59) K/uL Eos # (Auto) 0.07 (0.00-0.50) K/uL Baso # (Auto) 0.08 (0.00-0.20) K/uL Immature Gran # (Auto) 0.16 (0.01-0.20) K/uL PT 11.0 (9.0-12.0) Seconds INR 1.0 (0.9-1.1) APTT 23.1 (21.0-31.0) Seconds PTT Ratio 0.8 Sodium 140 (136-145) mmol/L Potassium 4.7 (3.5-5.1) mmol/L Chloride 108 H (98-107) mmol/L Carbon Dioxide 25 (21-32) mmol/L Anion Gap 7 (3-11) BUN 64 H (6-23) mg/dl Creatinine 1.06 (0.6-1.4) mg/dl Est Cr Clr Drug Dosing 91.1 ml/min Est GFR ( Amer) 93.1 ml/min Est GFR (Non-Af Amer) 80.3 ml/min BUN/Creatinine Ratio 60.4 H (10-20) Glucose 152 H (70-99(Fasting)) mg/dl POC Glucose (70-99) mg/dl Estimat Average Glucose mg/dl Hemoglobin A1c (4.5-5.6) % Lactate (0.4-2.0) mmol/L Calcium 8.6 (8.6-10.3) mg/dl Magnesium 1.7 (1.7-2.4) mg/dl Total Bilirubin 0.3 (0.2-1.0) mg/dl AST 11 L (13-39) U/L ALT 15 (7-52) U/L Alkaline Phosphatase 72 (34-104) U/L Troponin I High Sens 3.8 (0-20) pg/ml Total Protein 6.2 (6.0-8.3) gm/dl Albumin 3.7 (3.4-5.0) gm/dl Globulin 2.5 (2.5-4.0) gm/dl Albumin/Globulin Ratio 1.5 (0.9-2) Urine Color Urine Appearance (Clear) Urine pH (4.5-7.5) Ur Specific Masterson (1.000-1.030) Urine Protein (Negative) Urine Glucose (UA) (Negative) Urine Ketones (Negative) Urine Blood (Negative) Urine Nitrite (Negative) Urine Bilirubin (Negative) Urine Urobilinogen (Negative) Ur Leukocyte Esterase (Negative) SARS-CoV-2, RNA, NAAT (NEGATIVE) Blood Type A Positive Blood Type Recheck Antibody Screen NEGATIVE Crossmatch See Detail Diagnostic Findings CTAP: F H INDINGS: ABDOMEN: Liver: Unremarkable. Gallbladder and bile ducts: Unremarkable. Pancreas: Unremarkable. Spleen: Unremarkable. Adrenals: Unremarkable. Kidneys and ureters: Unremarkable. No obstructing stones. No hydronephrosis. Stomach and bowel: Inflammatory changes in the duodenum suggestive of duodenitis most commonly related to ulcer disease. PELVIS: Appendix: No findings to suggest acute appendicitis. Bladder: Unremarkable. Reproductive: Unremarkable as visualized. ABDOMEN and PELVIS: Intraperitoneal space: Unremarkable. No free air. No significant fluid collection. Bones/joints: No acute fracture. Soft tissues: Unremarkable. Vasculature: Unremarkable. Lymph nodes: Adenopathy within the periduodenal region. IMPRESSION: 1. Inflammatory changes in the duodenum suggestive of duodenitis most commonly related to ulcer disease. 2. Adenopathy within the periduodenal region. May be reactive however consider further imaging in 3-[address]: . FINDINGS: Brain: No hemorrhage, extra-axial fluid collection, mass effect, or edema. Ventricles: Unremarkable. Bones/joints: Unremarkable. No fracture. Soft tissues: Unremarkable. Sinuses: No acute sinusitis. Mastoid air cells: Unremarkable as visualized. IMPRESSION: 1. No acute intracranial abnormality.
--- NOTE | 2023-02-26 12:37 | Electrocardiogram Report ---
Test Reason : Blood Pressure : / mmHG Vent. Rate : 100 BPM Atrial Rate : 100 BPM P-R Int : 128 ms QRS Dur : 088 ms QT Int : 346 ms P-R-T Axes : 035 043 044 degrees QTc Int : 446 ms Normal sinus rhythm Normal ECG No previous ECGs available Confirmed by Carl Ortiz ([id number]) on 02/26/2023 12:37:29 PM Referred By: Domo Lewis Confirmed By:Carl Ortiz
[2023-02-26] MEDS: traZODone HCL 50 MG TAB PO SCH (21:10)
[2023-02-27] MEDS: INSULIN ASPART PER UNIT CHARGE SC SCH ×4 (01:51→21:00)
--- NOTE | 2023-02-27 07:01 | Anesthesiology Consultation ---
Date of Service February 27, 2023 Assessment & Plan Chart Review Chart Review: data entry assistant initiated History Surgery Operation Date: 02/27/23 16:30 Proposed Procedures p Esophagogastroduodenoscopy Dr. Sue Rogers MD Height/Weight Height: 5 ft 8 in Weight: 84.1 kg Allergies Allergy/AdvReac Type Severity Reaction Status Date / Time No Known Allergies Allergy Verified 02/25/23 19:01 Medications Home Medications Medication Instructions Recorded Confirmed Last Taken acetaminophen 325 mg tablet 487.5 mg PO TID PRN Pain 02/25/23 02/25/23 Unknown (Tylenol) amlodipine 2.5 mg tablet 2.5 mg PO DAILY 02/25/23 02/25/23 02/25/23 aspirin 81 mg chewable tablet 81 mg PO DAILY 02/25/23 02/25/23 02/25/23 escitalopram oxalate 10 mg tablet 10 mg PO DAILY 02/25/23 02/25/23 02/25/23 (Lexapro) glipizide 5 mg tablet 5 mg PO DAILY 02/25/23 02/25/23 02/25/23 lisinopril 2.5 mg tablet 7.5 mg PO DAILY 02/25/23 02/25/23 02/25/23 metformin 1,000 mg tablet 1,000 mg PO BIDM 02/25/23 02/25/23 02/25/23 nicotine 21 mg/24 hr daily 1 patch transdermal DAILY 02/25/23 02/25/23 Unknown transdermal patch trazodone 150 mg tablet 150 mg PO HS 02/25/23 02/25/23 Unknown Active Medications Generic Name Dose Route Start Last Admin Trade Name Raeann PRN Reason Stop Dose Admin Escitalopram Oxalate 10 mg 02/26/23 09:00 02/26/23 08:39 Escitalopram Oxalate 10 Mg Tab PO 03/28/23 08:59 10 mg DAILY TAWANA Administration Pantoprazole Sodium 40 mg/ 10 mls @ 5 mls/min 02/26/23 09:00 02/26/23 21:10 Syringe IV 03/28/23 08:59 5 mls/min BID TAWANA Administration Insulin Aspart 0 units 02/26/23 00:00 02/27/23 06:51 Insulin Aspart Per Unit Charge SC 03/28/23 00:00 Not Given Q6 TAWANA Trazodone HCl 150 mg 02/26/23 21:00 02/26/23 21:10 Trazodone Hcl 50 Mg Tab PO 03/28/23 20:59 150 mg HS TAWANA Administration Social History Smoking Status: Current every day smoker Do You Dip or Chew Tobacco: No Hx Alcohol Use: No Hx Substance Use: Yes substance use type: former substance user and amphetamines Last Used Substance Other:: January 22 last use Physical Exam Vital Signs Last Vital Signs Temp 97.7 F 02/27/23 02:42 Pulse 77 02/27/23 02:42 Resp 20 02/27/23 02:42 BP 118/76 02/27/23 02:42 Pulse Ox 96 02/27/23 02:42 O2 Del Method Room Air 02/27/23 02:42 Testing Laboratory Results 02/26/23 07:13 02/26/23 07:13 PT 11.0 Seconds (9.0-12.0) 02/25/23 19:33 INR 1.0 (0.9-1.1) 02/25/23 19:33 APTT 23.1 Seconds (21.0-31.0) 02/25/23 19:33 Hemoglobin A1c 8.0 % (4.5-5.6) H 02/25/23 22:57 Urine Color Yellow 02/26/23 05:20 Urine Appearance Clear (Clear) 02/26/23 05:20 Urine pH 5.0 (4.5-7.5) 02/26/23 05:20 Ur Specific [place] 1.040 (1.000-1.030) H 02/26/23 05:20 Urine Protein Negative (Negative) 02/26/23 05:20 Urine Glucose (UA) Negative (Negative) 02/26/23 05:20 Urine Ketones Negative (Negative) 02/26/23 05:20 Urine Nitrite Negative (Negative) 02/26/23 05:20 Ur Leukocyte Esterase Negative (Negative) 02/26/23 05:20 Blood Type A Positive 02/25/23 19:33 Antibody Screen NEGATIVE 02/25/23 19:33 02/27/23 02/26/23 02/26/23 06:01 23:54 21:11 POC Glucose 104 H 169 H 173 H Electrocardiogram Date: 02/25/23 Findings: + NSR @ (100 bpm)
[2023-02-27 07:46] LABS: Hematocrit (blood only) 27.8 % (42.0-52.0); Hemoglobin 9.3 g/dl (14.0-18.0); Mean Corpuscular Hemoglobin 30.1 pg (25.0-34.0); Mean Corpuscular Hgb Conc 33.5 g/dL (32.0-36.0); Mean Platelet Volume 9.7 fL (9.4-12.4); Platelet Count 284 K/uL (130-400); RDW Standard Deviation 42.5 fL (36.4-46.3); Red Blood Count 3.09 M/uL (4.70-6.10); White Blood Count 8.95 K/ul (4.8-10.8)
[2023-02-27 08:02] LABS: BUN Creatinine Ratio 20.6 (10-20); Calcium 8.7 mg/dl (8.6-10.3); Creatinine Clr Calc Pharmacy 89.5 ml/min; Est GFR (African American) 97.5 ml/min; Est GFR (Non-African American) 84.1 ml/min; Potassium 3.6 mmol/L (3.5-5.1)
--- NOTE | 2023-02-27 08:33 | History & Physical Bridge Note ---
Date of Service February 27, 2023 History & Physical Bridge Note I have examined the patient, reviewed the History & Physical and in the interval since the performance of the History & Physical I have noted the following changes of clinical significance: no changes noted Supervising Physician Co-Signing Physician Notes EGD today for evaluation of melena
--- NOTE | 2023-02-27 08:51 | GI REPORT ---
Patient Name: Ryland Israel Procedure Date: 02/27/2023 8:26 AM Date of : 1970 Admit Type: Inpatient Age: 52 Gender: Male Attending MD: Brianna Rogers M.d., Procedure: Upper GI endoscopy Providers: Brianna Rogers M.d. Referring MD: Domo Lewis Indications: Melena Medicines: See the Anesthesia note for documentation of the administered medications Complications: No immediate complications. Estimated Blood Loss: Estimated blood loss: none. Procedure: Pre-Anesthesia Assessment: - Patient identification and proposed procedure were verified prior to the procedure by the physician, the nurse and the anesthesiologist. The procedure was verified in the pre-procedure area. - Prior to the procedure, a History and Physical was performed, and patient medications, allergies and sensitivities were reviewed. The patient's tolerance of previous anesthesia was reviewed. - The risks and benefits of the procedure and the sedation options and risks were discussed with the patient. All questions were answered and informed consent was obtained. After obtaining informed consent, the endoscope was passed under direct vision. Throughout the procedure, the patient's blood pressure, pulse, and oxygen saturations were monitored continuously. The Endoscope was introduced through the mouth, and advanced to the second part of duodenum. The upper GI endoscopy was accomplished without difficulty. The patient tolerated the procedure well. Findings: The examined esophagus appeared normal. The gastroesophageal junction was found at 35 cm from the incisors. Localized mild inflammation characterized by erythema was found in the gastric body. Biopsies were taken with a cold forceps for Helicobacter pylori testing. The pathology specimen was placed into Bottle A. Verification of patient identification for the specimen was done by the physician and nurse using the patient's name and medical record number. Localized mildly erythematous mucosa without active bleeding and with no stigmata of bleeding was found in the duodenal bulb. The second portion of the duodenum appeared normal. Impression: - Normal esophagus. - Normal GE junction. - Antral gastritis. Biopsied. - Erythematous duodenopathy in the bulb. - Normal second portion of the duodenum. Recommendation: - Await pathology results. Richard Cruz M.d. 02/27/2023 8:50:57 AM This report has been signed electronically. Note Initiated On: 02/27/2023 8:26 AM Number of Addenda: 0 I attest to the content of the Intraoperative Record and orders documented therein, exceptions below {[id number]}
[2023-02-27] MEDS ORDERED: PROPOFOL IV EMULSION 10 MG/ML 20 ML VIAL IV ONE (08:52)
[2023-02-27] MEDS ORDERED: LIDOCAINE 2% 2 ML VIAL/AMP(20MG/ML) INFIL ONE (08:52)
--- NOTE | 2023-02-27 08:52 | Communication Note ---
Date of Service: February 27, 2023 EGD completed - no active bleeding seen. Mild antral gastritis/duodenitis. Biopsies done to rule out h pylori. Given recent initiation of aspirin, consider daily ppi. No further plans for scopes at this time from gi perspective.
--- NOTE | 2023-02-27 09:22 | Hospitalist Progress Note ---
Date of Service February 27, 2023 Assessment & Plan (1) Acute upper gastrointestinal bleeding: (2) Acute blood loss anemia: (3) Syncope and collapse: (4) Complaint of melena: (5) Mood disorder: (6) DMII (diabetes mellitus, type 2): (7) Tobacco use disorder: Plan Differentials include PUD, gastritis, tumor EGD this morning revealed gastritis with no stigmata of bleeding. Cont PPI daily and avoid baby aspirin. Syncope likely secondary to orthostasis secondary to GI bleed-resolved. Aspirin recently prescribed at psychiatric facility following patient request.- stopped Anemia secondary to above Normal baseline hemoglobin of 14 noted last February 22 at [facility] ER. Hb around 9.5 today. Trend in am. DM 2 recently started on oral medications, A1C of 8.0 reflects poor control. Cont basal/bolus insulin while admitted. Mood disorder, patient currently not suicidal Behavioral health liaison consult. Ongoing tobacco abuse DVT prophylaxis. SCDs Re: GI bleed Full code Dispo-medically ready for discharge pending clearance to return to the [facility]. Alexus Carlos DO [facility] Ad[facility] and Anticipated Discharge Date Admission Date: February 25, 2023 Subjective 52 yo M presents with melena and syncope, clinical picture concerning for UGIB. Had persistent melena after EGD this am Denies lightheadedness, abdominal pain Tolerating PO EGD this am. Physical Exam Physical Exam: CONSTITUTIONAL: WNWD, vitals as above, generally well-appearing, NAD EYES: normal conjunctivae, no scleral icterus ENT: external ear and nose normal, MMM NECK: trachea midline, RESPIRATORY: clear to auscultation bilaterally, no crackles, rales or wheezes, normal respiratory effort CARDIOVASCULAR: regular rate and rhythm, S1 and 2 heard without murmurs, gallops or rubs, no JVD, no peripheral edema CHEST: inspection of chest was normal GASTROINTESTINAL:soft, nontender, Nd, no guarding MUSCULOSKELETAL: strength 5/5 throughout, head is normocephalic and atraumatic, SKIN: warm and dry NEUROLOGIC: CN 2-12 grossly intact, no sensory deficit, normal cognition, normal speech, no tremor PSYCHIATRIC: alert cooperative and oriented to person, place and time. Euthymic mood, makes good eye contact, language grossly intact, recent and re mote memory grossly intact. Results & Data Results & Data Vital Signs (Past 12 Hours) Vital Signs Temp Pulse Pulse Pulse Resp BP Pulse Ox 02/27/23 09:19 78 20 126/82 97 02/27/23 09:04 80 18 115/72 95 02/27/23 08:49 85 16 113/67 95 02/27/23 07:43 36.3 C L 76 16 136/78 98 02/27/23 07:37 75 02/27/23 02:42 36.5 C 77 20 118/76 96 02/26/23 22:31 36.5 C 93 H 16 105/65 97 O2 Del Method 02/27/23 09:19 Room Air 02/27/23 09:04 Room Air 02/27/23 08:49 Room Air 02/27/23 07:43 Room Air 02/27/23 07:37 02/27/23 02:42 Room Air 02/26/23 22:31 Room Air Laboratory Results Short CBC 02/27/23 Range/Units 07:03 WBC 8.95 (4.8-10.8) K/ul Hgb 9.3 L (14.0-18.0) g/dl Hct 27.8 L (42.0-52.0) % Plt Count 284 (130-400) K/uL BMP 02/27/23 07:03 Sodium 140 Potassium 3.6 Chloride 106 Carbon Dioxide 29 BUN 21 D Creatinine 1.02 Glucose 111 H Calcium 8.7 Medications Administered Current Inpatient Medications Acetaminophen (Acetaminophen 325 Mg Tab) 650 mg PO QID PRN PRN Reason: pain/fever Stop: 03/27/23 23:04 Dextrose (Dextrose 50% 50 Ml Syringe) 25 - 50 ml IV UD PRN; Protocol PRN Reason: Hypoglycemia Protocol Stop: 03/27/23 23:31 Escitalopram Oxalate (Escitalopram Oxalate 10 Mg Tab) 10 mg PO DAILY [facility] Stop: 03/28/23 08:59 Last Admin: 02/26/23 08:39 Dose: 10 mg Glucagon (Glucagon For Inj 1 Mg Vial) 1 mg SQ UD PRN; Protocol PRN Reason: Hypoglycemia Protocol Stop: 03/27/23 23:31 Glucose (Glucose 10 Tab/Tube) 4 - 8 tab PO UD PRN; Protocol PRN Reason: Hypoglycemia Treatment Stop: 03/27/23 23:31 Glucose (Glucose 40% Gel 15 Gm Tube) 15 - 30 gm PO UD PRN; Protocol PRN Reason: Hypoglycemia Protocol Stop: 03/27/23 23:31 Promethazine HCl 12.5 mg/ (Sodium Chloride) 50.5 mls @ 202 mls/hr IV Q6H PRN PRN Reason: Nausea And Vomiting Stop: 03/27/23 23:04 Pantoprazole Sodium 40 mg/ (Syringe) 10 mls @ 5 mls/min IV BID [facility] Stop: 03/28/23 08:59 Last Admin: 02/26/23 21:10 Dose: 5 mls/min Insulin Aspart (Insulin Aspart Per Unit Charge) 0 units SC Q6 [facility] Stop: 03/28/23 00:00 Last Admin: 02/27/23 06:51 Dose: Not Given Miscellaneous (Carbohydrates For Hypoglycemia ) 15 - 30 gm PO UD PRN PRN Reason: Hypoglycemia Protocol Stop: 03/27/23 23:31 Oxycodone HCl (Oxycodone Hcl Ir 5 Mg Tab (Immediate Release)) 5 mg PO Q4H PRN PRN Reason: Pain Stop: 03/11/23 23:04 Trazodone HCl (Trazodone Hcl 50 Mg Tab) 150 mg PO HS [facility] Stop: 03/28/23 20:59 Last Admin: 02/26/23 21:10 Dose: 150 mg
--- NOTE | 2023-02-27 09:47 | Anesthesiology Progress Note ---
Date of Service February 27, 2023 Anesthesia Post Procedure Vital Signs Vital Signs: Temp Pulse Pulse Pulse Resp BP Pulse Ox 02/27/23 09:19 78 20 126/82 97 02/27/23 09:04 80 18 115/72 95 02/27/23 08:49 85 16 113/67 95 02/27/23 07:43 97.3 F L 76 16 136/78 98 02/27/23 07:37 75 02/27/23 02:42 97.7 F 77 20 118/76 96 02/26/23 22:31 97.7 F 93 H 16 105/65 97 02/26/23 18:36 80 16 120/75 100 O2 Del Method 02/27/23 09:19 Room Air 02/27/23 09:04 Room Air 02/27/23 08:49 Room Air 02/27/23 07:43 Room Air 02/27/23 07:37 02/27/23 02:42 Room Air 02/26/23 22:31 Room Air 02/26/23 18:36 Room Air Transfer of Care Handoff Completed per policy Notes Mental Status: alert / awake / arousable and participated in evaluation Patient Amnestic to Procedure: Yes Nausea / Vomiting: adequately controlled Pain: adequately controlled Airway Patency, RR, SpO2: stable & adequate BP & HR: stable & adequate Hydration State: stable & adequate Anesthetic Complications: no major complications apparent and Pt Satisfied with anesthetic care
[2023-02-27] MEDS: ESCITALOPRAM OXALATE 10 MG TAB PO SCH (09:58)
[2023-02-27] MEDS: PANTOprazole 40 MG in SYRINGE 0 ML IV SCH (09:58)
[2023-02-27] MEDS ORDERED: Nursing to Pharmacy Communication SCH (11:30)
[2023-02-27] MEDS: traZODone HCL 50 MG TAB PO SCH (21:09)
[2023-02-28] MEDS: PANTOprazole 40 MG TAB PO SCH (08:29)
[2023-02-28] MEDS: amLODIPine BESYLATE 5 MG TAB PO SCH (08:29)
[2023-02-28] MEDS: ESCITALOPRAM OXALATE 10 MG TAB PO SCH (08:29)
[2023-02-28] MEDS: INSULIN ASPART PER UNIT CHARGE SC SCH ×4 (08:36→21:13)
[2023-02-28 08:38] LABS: Hematocrit (blood only) 26.9 % (42.0-52.0); Hemoglobin 8.9 g/dl (14.0-18.0); Mean Corpuscular Hemoglobin 29.9 pg (25.0-34.0); Mean Corpuscular Hgb Conc 33.1 g/dL (32.0-36.0); Mean Corpuscular Volume 90.3 fL (80.0-100.0); Mean Platelet Volume 9.4 fL (9.4-12.4); Platelet Count 274 K/uL (130-400); RDW Coefficient of Variation 12.9 % (11.5-14.5); RDW Standard Deviation 41.6 fL (36.4-46.3); Red Blood Count 2.98 M/uL (4.70-6.10); White Blood Count 7.36 K/ul (4.8-10.8)
[2023-02-28 08:58] LABS: Calcium 8.6 mg/dl (8.6-10.3); Creatinine Clr Calc Pharmacy 97.1 ml/min; Est GFR (African American) 107.6 ml/min; Est GFR (Non-African American) 92.8 ml/min; Potassium 3.9 mmol/L (3.5-5.1)
[2023-02-28] MEDS ORDERED: lisinopril 2.5 MG TAB PO SCH (09:00)
--- NOTE | 2023-02-28 10:40 | Hospitalist Progress Note ---
Date of Service February 28, 2023 Assessment & Plan (1) Acute upper gastrointestinal bleeding: (2) Acute blood loss anemia: (3) Syncope and collapse: (4) Complaint of melena: (5) Mood disorder: (6) DMII (diabetes mellitus, type 2): (7) Tobacco use disorder: Plan Differentials include PUD, gastritis, tumor EGD revealed gastritis / duodenitis with no stigmata of bleeding. Cont PPI daily and avoid baby aspirin. Syncope likely secondary to orthostasis secondary to GI bleed-resolved. Aspirin recently prescribed at psychiatric facility following patient request.- stopped Anemia secondary to above Normal baseline hemoglobin of 14 noted last February [address] [facility] ER. Hb 8.9 today. DM 2 recently started on oral medications, A1C of 8.0 reflects poor control. Cont basal/bolus insulin while admitted. Mood disorder, patient currently not suicidal Behavioral health liaison consulted. Pt is from [facility]. Ongoing tobacco abuse DVT prophylaxis. SCDs Re: GI bleed Full code Dispo-medically ready for discharge pending clearance to return to the [facility]. Admission and Anticipated Discharge Date Admission Date: February 25, 2023 Subjective 52 yo M presents with melena and syncope, clinical picture concerning for UGIB. Had persistent melena Denies lightheadedness, abdominal pain Tolerating PO EGD yesterday - c/w gastritis, duodenitis, started on PPI Reports last time having dark stool yesterday. Pt is from [facility]. CM involved. Review of Systems Review of Systems: All systems reviewed & are unremarkable except as noted in Subjective Physical Exam Physical Exam: CONSTITUTIONAL: WNWD, in NAD EYES: normal conjunctivae, no scleral icterus ENT: external ear and nose normal, MMM NECK: supple RESPIRATORY: clear to auscultation bilaterally, no crackles, rales or wheezes, normal respiratory effort CARDIOVASCULAR: regular rate and rhythm, S1 and 2 heard without murmurs CHEST: inspection of chest normal GASTROINTESTINAL:soft, nontender, Nd, no guarding MUSCULOSKELETAL: strength 5/5 throughout, head is normocephalic and atraumatic, SKIN: warm and dry NEURO/PSYCH: alert cooperative and oriented to person, place and time. Euthymic mood, makes good eye contact, answers simple questions appropriately,normal speech, no tremor, moves extremities Results & Data Results & Data Vital Signs (Past 12 Hours) Vital Signs Temp Pulse Resp BP Pulse Ox O2 Del Method 02/28/23 07:54 36.5 C 67 16 115/73 95 Room Air Laboratory Results 02/28/23 02/28/23 02/27/23 Range/Units 08:18 07:40 20:29 WBC 7.36 (4.8-10.8) K/ul RBC 2.98 L (4.70-6.10) M/uL Hgb 8.9 L (14.0-18.0) g/dl Hct 26.9 L (42.0-52.0) % MCV 90.3 (80.0-100.0) fL MCH 29.9 (25.0-34.0) pg MCHC 33.1 (32.0-36.0) g/dL RDW Std Deviation 41.6 (36.4-46.3) fL RDW Coeff of Aleksander 12.9 (11.5-14.5) % Plt Count 274 (130-400) K/uL MPV 9.4 (9.4-12.4) fL Sodium 141 (136-145) mmol/L Potassium 3.9 (3.5-5.1) mmol/L Chloride 108 H (98-107) mmol/L Carbon Dioxide 29 (21-32) mmol/L Anion Gap 4 (3-11) BUN 15 (6-23) mg/dl Creatinine 0.94 (0.6-1.4) mg/dl Est Cr Clr Drug Dosing 97.1 ml/min Est GFR ( Amer) 107.6 ml/min Est GFR (Non-Af Amer) 92.8 ml/min BUN/Creatinine Ratio 16.0 (10-20) Glucose 127 H (70-99(Fasting)) mg/dl POC Glucose 134 H 119 H (70-99) mg/dl Calcium 8.6 (8.6-10.3) mg/dl 02/27/23 02/27/23 Range/Units 16:25 11:18 WBC (4.8-10.8) K/ul RBC (4.70-6.10) M/uL Hgb (14.0-18.0) g/dl Hct (42.0-52.0) % MCV (80.0-100.0) fL MCH (25.0-34.0) pg MCHC (32.0-36.0) g/dL RDW Std Deviation (36.4-46.3) fL RDW Coeff of Aleksander (11.5-14.5) % Plt Count (130-400) K/uL MPV (9.4-12.4) fL Sodium (136-145) mmol/L Potassium (3.5-5.1) mmol/L Chloride (98-107) mmol/L Carbon Dioxide (21-32) mmol/L Anion Gap (3-11) BUN (6-23) mg/dl Creatinine (0.6-1.4) mg/dl Est Cr Clr Drug Dosing ml/min Est GFR ( Amer) ml/min Est GFR (Non-Af Amer) ml/min BUN/Creatinine Ratio (10-20) Glucose (70-99(Fasting)) mg/dl POC Glucose 157 H 173 H (70-99) mg/dl Calcium (8.6-10.3) mg/dl Medications Administered Current Inpatient Medications Acetaminophen (Acetaminophen 325 Mg Tab) 650 mg PO QID PRN PRN Reason: pain/fever Stop: 03/27/23 23:04 Amlodipine Besylate (Amlodipine Besylate 5 Mg Tab) 2.5 mg PO DAILY [facility] Stop: 03/30/23 08:59 Last Admin: 02/28/23 08:29 Dose: Not Given Dextrose (Dextrose 50% 50 Ml Syringe) 25 - 50 ml IV UD PRN; Protocol PRN Reason: Hypoglycemia Protocol Stop: 03/27/23 23:31 Escitalopram Oxalate (Escitalopram Oxalate 10 Mg Tab) 10 mg PO DAILY [facility] Stop: 03/28/23 08:59 Last Admin: 02/28/23 08:29 Dose: 10 mg Glucagon (Glucagon For Inj 1 Mg Vial) 1 mg SQ UD PRN; Protocol PRN Reason: Hypoglycemia Protocol Stop: 03/27/23 23:31 Glucose (Glucose 10 Tab/Tube) 4 - 8 tab PO UD PRN; Protocol PRN Reason: Hypoglycemia Treatment Stop: 03/27/23 23:31 Glucose (Glucose 40% Gel 15 Gm Tube) 15 - 30 gm PO UD PRN; Protocol PRN Reason: Hypoglycemia Protocol Stop: 03/27/23 23:31 Promethazine HCl 12.5 mg/ (Sodium Chloride) 50.5 mls @ 202 mls/hr IV Q6H PRN PRN Reason: Nausea And Vomiting Stop: 03/27/23 23:04 Insulin Aspart (Insulin Aspart Per Unit Charge) 0 units SC ACHS [facility] Stop: 03/28/23 00:00 Last Admin: 02/28/23 08:36 Dose: 2 units Lisinopril (Lisinopril 2.5 Mg Tab) 7.5 mg PO DAILY [facility] Stop: 03/30/23 08:59 Last Admin: 02/28/23 08:28 Dose: 7.5 mg Miscellaneous (Carbohydrates For Hypoglycemia ) 15 - 30 gm PO UD PRN PRN Reason: Hypoglycemia Protocol Stop: 03/27/23 23:31 Pantoprazole Sodium (Pantoprazole 40 Mg Tab) 40 mg PO QAM [facility] Stop: 03/30/23 08:59 Last Admin: 02/28/23 08:29 Dose: 40 mg Trazodone HCl (Trazodone Hcl 50 Mg Tab) 150 mg PO HS [facility] Stop: 03/28/23 20:59 Last Admin: 02/27/23 21:09 Dose: 150 mg
[2023-02-28] MEDS: SODIUM CHLORIDE 0.9% 1,000 ML IV SCH (17:07)
[2023-02-28 17:15] LABS: Hematocrit (blood only) 26.5 % (42.0-52.0); Hemoglobin 8.8 g/dl (14.0-18.0)
[2023-02-28] MEDS: traZODone HCL 50 MG TAB PO SCH (21:14)
[2023-03-01] MEDS: SODIUM CHLORIDE 0.9% 1,000 ML IV SCH (05:35)
[2023-03-01 08:14] LABS: Hemoglobin 8.1 g/dl (14.0-18.0)
[2023-03-01] MEDS: amLODIPine BESYLATE 5 MG TAB PO SCH (08:24)
[2023-03-01] MEDS: PANTOprazole 40 MG TAB PO SCH (08:25)
[2023-03-01] MEDS: ESCITALOPRAM OXALATE 10 MG TAB PO SCH (08:25)
[2023-03-01 08:31] LABS: BUN Creatinine Ratio 15.8 (10-20); Calcium 8.3 mg/dl (8.6-10.3); Creatinine Clr Calc Pharmacy 96.1 ml/min; Est GFR (African American) 106.2 ml/min; Est GFR (Non-African American) 91.7 ml/min; Phosphorus 3.1 mg/dl (2.5-4.9)
[2023-03-01] MEDS: INSULIN ASPART PER UNIT CHARGE SC SCH ×4 (08:34→21:41)
--- NOTE | 2023-03-01 08:46 | Hospitalist Progress Note ---
Date of Service March 01, 2023 Assessment & Plan (1) Acute upper gastrointestinal bleeding: (2) Acute blood loss anemia: (3) Syncope and collapse: (4) Complaint of melena: (5) Mood disorder: (6) DMII (diabetes mellitus, type 2): (7) Tobacco use disorder: Plan Differentials include PUD, gastritis, tumor EGD revealed gastritis / duodenitis with no stigmata of bleeding. Cont PPI daily and avoid baby aspirin. Syncope likely secondary to orthostasis secondary to GI bleed-resolved. Aspirin recently prescribed at psychiatric facility following patient request.- stopped Anemia secondary to above Normal baseline hemoglobin of 14 noted last February 22 at [facility] ER. Hb 8.1 today. DM 2 recently started on oral medications, A1C of 8.0 reflects poor control. Cont basal/bolus insulin while admitted. HTN - on amlodipine and lisinopril - will hold now, monitor BP Mood disorder, patient currently not suicidal Behavioral health liaison consulted. Pt is from [facility]. Ongoing tobacco abuse DVT prophylaxis. SCDs Re: GI bleed Full code Dispo- plan to return to the [facility]. Admission and Anticipated Discharge Date Admission Date: February 25, 2023 Subjective 52 yo M presents with melena and syncope, clinical picture concerning for UGIB. Had persistent melena Denies lightheadedness, abdominal pain Tolerating PO EGD - c/w gastritis, duodenitis, started on PPI Reports no BM today or yesterday. Hgb 8.1 Pt is from [facility]. CM involved. Review of Systems Review of Systems: All systems reviewed & are unremarkable except as noted in Subjective Physical Exam Physical Exam: CONSTITUTIONAL: WNWD, in NAD EYES: normal conjunctivae, no scleral icterus ENT: external ear and nose normal, MMM NECK: supple RESPIRATORY: clear to auscultation bilaterally, no crackles, rales or wheezes, normal respiratory effort CARDIOVASCULAR: regular rate and rhythm, S1 and 2 heard without murmurs CHEST: inspection of chest normal GASTROINTESTINAL:soft, nontender, Nd, no guarding MUSCULOSKELETAL: strength 5/5 throughout, head is normocephalic and atraumatic, SKIN: warm and dry NEURO/PSYCH: alert cooperative and oriented to person, place and time. Euthymic mood, makes good eye contact, answers simple questions appropriately,normal speech, no tremor, moves extremities Results & Data Results & Data Vital Signs (Past 12 Hours) Vital Signs Temp Pulse Pulse Resp BP Pulse Ox O2 Del Method 03/01/23 08:28 66 20 108/66 96 Room Air 03/01/23 07:58 36.7 C 62 16 109/68 97 Room Air Laboratory Results 03/01/23 03/01/23 02/28/23 Range/Units 07:53 07:21 20:12 Hgb 8.1 L (14.0-18.0) g/dl Hct 24.0 L (42.0-52.0) % Sodium 141 (136-145) mmol/L Potassium 4.0 (3.5-5.1) mmol/L Chloride 109 H (98-107) mmol/L Carbon Dioxide 28 (21-32) mmol/L Anion Gap 4 (3-11) BUN 15 (6-23) mg/dl Creatinine 0.95 (0.6-1.4) mg/dl Est Cr Clr Drug Dosing 96.1 ml/min Est GFR ( Amer) 106.2 ml/min Est GFR (Non-Af Amer) 91.7 ml/min BUN/Creatinine Ratio 15.8 (10-20) Glucose 128 H (70-99(Fasting)) mg/dl POC Glucose 134 H 180 H (70-99) mg/dl Calcium 8.3 L (8.6-10.3) mg/dl Phosphorus 3.1 (2.5-4.9) mg/dl Magnesium 2.0 (1.7-2.4) mg/dl Crossmatch 02/28/23 02/28/23 02/28/23 Range/Units 16:57 16:56 11:29 Hgb 8.8 L (14.0-18.0) g/dl Hct 26.5 L (42.0-52.0) % Sodium (136-145) mmol/L Potassium (3.5-5.1) mmol/L Chloride (98-107) mmol/L Carbon Dioxide (21-32) mmol/L Anion Gap (3-11) BUN (6-23) mg/dl Creatinine (0.6-1.4) mg/dl Est Cr Clr Drug Dosing ml/min Est GFR ( Amer) ml/min Est GFR (Non-Af Amer) ml/min BUN/Creatinine Ratio (10-20) Glucose (70-99(Fasting)) mg/dl POC Glucose 113 H 165 H (70-99) mg/dl Calcium (8.6-10.3) mg/dl Phosphorus (2.5-4.9) mg/dl Magnesium (1.7-2.4) mg/dl Crossmatch 02/28/23 02/25/23 Range/Units 08:18 19:33 Hgb (14.0-18.0) g/dl Hct (42.0-52.0) % Sodium 141 (136-145) mmol/L Potassium 3.9 (3.5-5.1) mmol/L Chloride 108 H (98-107) mmol/L Carbon Dioxide 29 (21-32) mmol/L Anion Gap 4 (3-11) BUN 15 (6-23) mg/dl Creatinine 0.94 (0.6-1.4) mg/dl Est Cr Clr Drug Dosing 97.1 ml/min Est GFR ( Amer) 107.6 ml/min Est GFR (Non-Af Amer) 92.8 ml/min BUN/Creatinine Ratio 16.0 (10-20) Glucose 127 H (70-99(Fasting)) mg/dl POC Glucose (70-99) mg/dl Calcium 8.6 (8.6-10.3) mg/dl Phosphorus (2.5-4.9) mg/dl Magnesium (1.7-2.4) mg/dl Crossmatch See Detail Medications Administered Current Inpatient Medications Acetaminophen (Acetaminophen 325 Mg Tab) 650 mg PO QID PRN PRN Reason: pain/fever Stop: 03/27/23 23:04 Amlodipine Besylate (Amlodipine Besylate 5 Mg Tab) 2.5 mg PO DAILY [facility] Stop: 03/30/23 08:59 Last Admin: 03/01/23 08:24 Dose: Not Given Dextrose (Dextrose 50% 50 Ml Syringe) 25 - 50 ml IV UD PRN; Protocol PRN Reason: Hypoglycemia Protocol Stop: 03/27/23 23:31 Escitalopram Oxalate (Escitalopram Oxalate 10 Mg Tab) 10 mg PO DAILY [facility] Stop: 03/28/23 08:59 Last Admin: 03/01/23 08:25 Dose: 10 mg Glucagon (Glucagon For Inj 1 Mg Vial) 1 mg SQ UD PRN; Protocol PRN Reason: Hypoglycemia Protocol Stop: 03/27/23 23:31 Glucose (Glucose 10 Tab/Tube) 4 - 8 tab PO UD PRN; Protocol PRN Reason: Hypoglycemia Treatment Stop: 03/27/23 23:31 Glucose (Glucose 40% Gel 15 Gm Tube) 15 - 30 gm PO UD PRN; Protocol PRN Reason: Hypoglycemia Protocol Stop: 03/27/23 23:31 Promethazine HCl 12.5 mg/ (Sodium Chloride) 50.5 mls @ 202 mls/hr IV Q6H PRN PRN Reason: Nausea And Vomiting Stop: 03/27/23 23:04 Sodium Chloride (Nss) 1,000 mls @ 80 mls/hr IV .[id number] [facility] Stop: 03/30/23 16:14 Last Admin: 03/01/23 05:35 Dose: 80 mls/hr Insulin Aspart (Insulin Aspart Per Unit Charge) 0 units SC ACHS [facility] Stop: 03/28/23 00:00 Last Admin: 03/01/23 08:34 Dose: 4 units Lisinopril (Lisinopril 2.5 Mg Tab) 7.5 mg PO DAILY [facility] Stop: 03/30/23 08:59 Last Admin: 02/28/23 08:28 Dose: 7.5 mg Miscellaneous (Carbohydrates For Hypoglycemia ) 15 - 30 gm PO UD PRN PRN Reason: Hypoglycemia Protocol Stop: 03/27/23 23:31 Pantoprazole Sodium (Pantoprazole 40 Mg Tab) 40 mg PO QAM [facility] Stop: 03/30/23 08:59 Last Admin: 03/01/23 08:25 Dose: 40 mg Trazodone HCl (Trazodone Hcl 50 Mg Tab) 150 mg PO HS [facility] Stop: 03/28/23 20:59 Last Admin: 02/28/23 21:14 Dose: 150 mg
[2023-03-01] MEDS: traZODone HCL 50 MG TAB PO SCH (21:41)
[2023-03-02 07:32] LABS: Hematocrit (blood only) 25.4 % (42.0-52.0); Hemoglobin 8.5 g/dl (14.0-18.0)
[2023-03-02] MEDS: ESCITALOPRAM OXALATE 10 MG TAB PO SCH (08:14)
[2023-03-02] MEDS: PANTOprazole 40 MG TAB PO SCH (08:14)
[2023-03-02] MEDS: INSULIN ASPART PER UNIT CHARGE SC SCH ×4 (08:18→22:00)
[2023-03-02] MEDS ORDERED: POLYETHYLENE (MIRALAX) 17 GM PACK PO ONE (09:04)
--- NOTE | 2023-03-02 15:12 | Hospitalist Progress Note ---
Date of Service March 02, 2023 Assessment & Plan (1) Acute upper gastrointestinal bleeding: (2) Acute blood loss anemia: (3) Syncope and collapse: (4) Complaint of melena: (5) Mood disorder: (6) DMII (diabetes mellitus, type 2): (7) Tobacco use disorder: Plan Differentials include PUD, gastritis, tumor EGD revealed gastritis / duodenitis with no stigmata of bleeding. Biopsy obtained - results for H.pylori staining inconclusive and so H.pylori stool antigen obtained and currently pending. Cont PPI daily and avoid baby aspirin. Syncope likely secondary to orthostasis secondary to GI bleed-resolved. Aspirin recently prescribed at psychiatric facility following patient request.- stopped Anemia secondary to above Normal baseline hemoglobin of 14 noted last February 22 at [facility] ER. Hb 8.5 today - been stable DM 2 recently started on oral medications, A1C of 8.0 reflects poor control. Cont basal/bolus insulin while admitted. HTN - on amlodipine and lisinopril - will hold now, monitor BP Mood disorder, patient currently not suicidal Behavioral health liaison consulted. Pt is from [facility]. Ongoing tobacco abuse DVT prophylaxis. SCDs Re: GI bleed Full code Dispo- uncertain at this time. Pt is from [facility] and can't return at this time. Admission and Anticipated Discharge Date Admission Date: February 25, 2023 Subjective 52 yo M presents with melena and syncope, clinical picture concerning for UGIB. Had persistent melena Denies lightheadedness, abdominal pain Tolerating PO EGD - c/w gastritis, duodenitis, started on PPI Hgb 8.5 - stable H.pylori stool antigen pending Pt is from [facility]. I was informed that pt can't return to [facility] if his hemoglobin is not above 10 and so they are bringing pt's belongings. Review of Systems Review of Systems: All systems reviewed & are unremarkable except as noted in Subjective Physical Exam Physical Exam: CONSTITUTIONAL: WNWD, in NAD EYES: normal conjunctivae, no scleral icterus ENT: external ear and nose normal, MMM NECK: supple RESPIRATORY: clear to auscultation bilaterally, no crackles, rales or wheezes, normal respiratory effort CARDIOVASCULAR: regular rate and rhythm, S1 and 2 heard without murmurs CHEST: inspection of chest normal GASTROINTESTINAL:soft, nontender, Nd, no guarding MUSCULOSKELETAL: strength 5/5 throughout, head is normocephalic and atraumatic, SKIN: warm and dry NEURO/PSYCH: alert cooperative and oriented to person, place and time. Euthymic mood, makes good eye contact, answers simple questions appropriately,normal speech, no tremor, moves extremities Results & Data Results & Data Vital Signs (Past 12 Hours) Vital Signs Temp Pulse Resp BP Pulse Ox O2 Del Method 03/02/23 14:59 36.6 C 78 17 135/72 99 Room Air 03/02/23 07:03 36.9 C 73 17 127/78 96 Room Air Laboratory Results 03/02/23 03/02/23 03/02/23 Range/Units 12:39 11:17 07:42 Hgb (14.0-18.0) g/dl Hct (42.0-52.0) % POC Glucose 162 H 136 H (70-99) mg/dl Stool H. pylori Ag Pending 03/02/23 03/01/23 03/01/23 Range/Units 06:53 20:08 16:29 Hgb 8.5 L (14.0-18.0) g/dl Hct 25.4 L (42.0-52.0) % POC Glucose 150 H 109 H (70-99) mg/dl Stool H. pylori Ag Medications Administered Current Inpatient Medications Acetaminophen (Acetaminophen 325 Mg Tab) 650 mg PO QID PRN PRN Reason: pain/fever Stop: 03/27/23 23:04 Amlodipine Besylate (Amlodipine Besylate 5 Mg Tab) 2.5 mg PO DAILY [facility] Stop: 03/30/23 08:59 Last Admin: 03/01/23 08:24 Dose: Not Given Dextrose (Dextrose 50% 50 Ml Syringe) 25 - 50 ml IV UD PRN; Protocol PRN Reason: Hypoglycemia Protocol Stop: 03/27/23 23:31 Escitalopram Oxalate (Escitalopram Oxalate 10 Mg Tab) 10 mg PO DAILY [facility] Stop: 03/28/23 08:59 Last Admin: 03/02/23 08:14 Dose: 10 mg Glucagon (Glucagon For Inj 1 Mg Vial) 1 mg SQ UD PRN; Protocol PRN Reason: Hypoglycemia Protocol Stop: 03/27/23 23:31 Glucose (Glucose 10 Tab/Tube) 4 - 8 tab PO UD PRN; Protocol PRN Reason: Hypoglycemia Treatment Stop: 03/27/23 23:31 Glucose (Glucose 40% Gel 15 Gm Tube) 15 - 30 gm PO UD PRN; Protocol PRN Reason: Hypoglycemia Protocol Stop: 03/27/23 23:31 Promethazine HCl 12.5 mg/ (Sodium Chloride) 50.5 mls @ 202 mls/hr IV Q6H PRN PRN Reason: Nausea And Vomiting Stop: 03/27/23 23:04 Insulin Aspart (Insulin Aspart Per Unit Charge) 0 units SC ACHS [facility] Stop: 03/28/23 00:00 Last Admin: 03/02/23 12:12 Dose: 6 units Lisinopril (Lisinopril 2.5 Mg Tab) 7.5 mg PO DAILY [facility] Stop: 03/30/23 08:59 Last Admin: 02/28/23 08:28 Dose: 7.5 mg Miscellaneous (Carbohydrates For Hypoglycemia ) 15 - 30 gm PO UD PRN PRN Reason: Hypoglycemia Protocol Stop: 03/27/23 23:31 Pantoprazole Sodium (Pantoprazole 40 Mg Tab) 40 mg PO QAM [facility] Stop: 03/30/23 08:59 Last Admin: 03/02/23 08:14 Dose: 40 mg Trazodone HCl (Trazodone Hcl 50 Mg Tab) 150 mg PO HS [facility] Stop: 03/28/23 20:59 Last Admin: 03/01/23 21:41 Dose: 150 mg
[2023-03-02] MEDS: traZODone HCL 50 MG TAB PO SCH (21:59)
[2023-03-03] MEDS: PANTOprazole 40 MG TAB PO SCH (08:00)
[2023-03-03] MEDS: ESCITALOPRAM OXALATE 10 MG TAB PO SCH (08:00)
[2023-03-03 08:16] LABS: Hematocrit (blood only) 26.8 % (42.0-52.0); Hemoglobin 9.2 g/dl (14.0-18.0)
[2023-03-03] MEDS: INSULIN ASPART PER UNIT CHARGE SC SCH ×2 (08:35→12:53)
--- NOTE | 2023-03-03 14:59 | Discharge Summary ---
Date of Service March 03, 2023 Admission HPI Per Admitting Provider History obtained from patient and records. Medical history significant for hypertension, DM 2 recently started on oral medications, mood disorder, ongoing tobacco abuse. Patient is a resident of [facility] who has been voluntarily re-admitted for at the local [facility] for suicidality last 02/22/2023 following evaluation at [facility] ER. Patient does not really take home medications due to lack of PCP but was started on new blood pressure and diabetes medications along with mood meds at the facility. Patient requested [facility] provider to prescribe him aspirin as well to protect him from heart attacks and strokes due to his family history. Yesterday, patient noted achy frontal headache symptoms. Patient noted lightheadedness symptoms today. Achy abdominal pain on the sides followed by melanotic stools. No hematemesis/coffee-ground emesis. No chest pain. Admits to shortness of breath on exertion. Syncopal event without obvious generalized tonic-clonic seizures, incontinence or tongue biting. SBP noted to be 90s at the facility. Transient melena episode last year leading to patient evaluation at an ER close to his home. Patient told he could have ulcers and was discharged on some unrecalled stomach medication. Melena episode resolved. Involuntary 10 pound weight loss secondary to poor appetite last month as per patient. Patient brought to the ER for evaluation. IV PPI initiated at the ER. 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 Admission Exam Per Admitting Provider GENERAL: Comfortable, pleasant, obese, no respiratory distress SKIN: Pallor, warm HEENT: Pale palpebral conjunctivae, no ptosis, dry buccal mucosa NECK : Supple, no tenderness CHEST : CTA, no tenderness HEART : RRR, no obvious murmurs ABDOMEN: Some distention, minimal epigastric tenderness EXTREMITIES : Abrasion over RUE, no LE swelling/tenderness, no other conspicuous deformities noted NEUROLOGIC : Coherent, no facial asymmetry, no other gross focality Principal Diagnosis Anemia due to GI bleed - due to gastritis/duodenitis Discharge Exam CONSTITUTIONAL: WNWD, in NAD EYES: normal conjunctivae, no scleral icterus ENT: external ear and nose normal, MMM NECK: supple RESPIRATORY: clear to auscultation bilaterally, no crackles, rales or wheezes, normal respiratory effort CARDIOVASCULAR: regular rate and rhythm, S1 and 2 heard without murmurs CHEST: inspection of chest normal GASTROINTESTINAL:soft, nontender, Nd, no guarding MUSCULOSKELETAL: strength 5/5 throughout, head is normocephalic and atraumatic, SKIN: warm and dry NEURO/PSYCH: alert cooperative and oriented to person, place and time. Euthymic mood, makes good eye contact, answers simple questions appropriately,normal speech, no tremor, moves extremities Discharge Data Allergies Allergy/AdvReac Type Severity Reaction Status Date / Time No Known Allergies Allergy Verified 02/25/23 19:01 Consultations 02/25/23 21:15 ED Decision to Admit Stat 02/25/23 23:05 Consult Gastroenterology Routine 02/26/23 14:29 Consult Behavioral Health Liaison Routine Procedures Performed Operation Date: 02/27/23 16:30 Actual Procedures p EGD Biopsy Cytology - Brianna Rogers MD Ordered Studies 02/25/23 19:54 CT Abd and Pelvis [CT abd pelvis IV con only] Stat FINDINGS: ABDOMEN: Liver: Unremarkable. Gallbladder and bile ducts: Unremarkable. Pancreas: Unremarkable. Spleen: Unremarkable. Adrenals: Unremarkable. Kidneys and ureters: Unremarkable. No obstructing stones. No hydronephrosis. Stomach and bowel: Inflammatory changes in the duodenum suggestive of duodenitis most commonly related to ulcer disease. PELVIS: Appendix: No findings to suggest acute appendicitis. Bladder: Unremarkable. Reproductive: Unremarkable as visualized. ABDOMEN and PELVIS: Intraperitoneal space: Unremarkable. No free air. No significant fluid collection. Bones/joints: No acute fracture. Soft tissues: Unremarkable. Vasculature: Unremarkable. Lymph nodes: Adenopathy within the periduodenal region. IMPRESSION: 1. Inflammatory changes in the duodenum suggestive of duodenitis most commonly related to ulcer disease. 2. Adenopathy within the periduodenal region. May be reactive however consider further imaging in 3-6 months. 02/25/23 21:38 CT head/brain wo con Stat FINDINGS: Brain: No hemorrhage, extra-axial fluid collection, mass effect, or edema. Ventricles: Unremarkable. Bones/joints: Unremarkable. No fracture. Soft tissues: Unremarkable. Sinuses: No acute sinusitis. Mastoid air cells: Unremarkable as visualized. IMPRESSION: 1. No acute intracranial abnormality. Hospital Course (1) Acute upper gastrointestinal bleeding: (2) Acute blood loss anemia: (3) Syncope and collapse: (4) Complaint of melena: (5) Mood disorder: (6) DMII (diabetes mellitus, type 2): (7) Tobacco use disorder: Plan Differentials include PUD, gastritis, tumor EGD revealed gastritis / duodenitis with no stigmata of bleeding. Biopsy obtained - results for H.pylori staining inconclusive and so H.pylori stool antigen obtained and currently pending. Cont PPI daily and avoid baby aspirin. Syncope likely secondary to orthostasis secondary to GI bleed-resolved. Aspirin recently prescribed at psychiatric facility following patient request.- stopped Anemia secondary to above Normal baseline hemoglobin of 14 noted last February 22 at [facility] ER. Hb 9.2 today - been stable Pt is feeling well and started having brown stool. tolerating diet. DM 2 recently started on oral medications, A1C of 8.0 reflects poor control. Cont basal/bolus insulin while admitted. HTN - on amlodipine and lisinopril - stopped as BP on lower side Mood disorder, patient currently not suicidal Behavioral health liaison consulted. Pt is from [place] [facility] [place]. Continue Lexapro 10 daily and trazodone 150 hs. Ongoing tobacco abuse Dispo- Pt is from [place] and can't return there at this time. Case management and psychiatry involved. Pt is to be transported to [place], [place] - where he plans to reside with his friend. Total Time Total Time Spent Total Time Spent (In Minutes): 40 Discharge Plan Discharge Items Patient Disposition: Home - Self-Care Reason For Visit: HYPOTENSION, UGIB Discharge Diagnosis: Anemia due to GI bleed - due to gastritis/duodenitis Activity: Per Instructions section Non-emergency contact: Primary Care Provider Call non-emergency contact if: you have any medication questions and your symptoms worsen Follow-up/Referrals: PCP,NO [Primary Care Provider] - Diet: Carb Consistent or DM2 Diet Comment: avoid caffeine, alcohol, spicey or acidic foods Addtl Attending Provider Instructions: Follow up with primary care physician at your earliest convenience - ideally within 1-2 weeks. Take pantoprazole daily as prescribed. Avoid caffeine, alcohol, spicy or acidic foods. For pain, do not take aleve, mortrin, ibuprofen etc. You can take Tylenol. Pending Studies at Discharge: Yes Studies:: H. pylori antigen Stand-Alone Forms: [facility], Smoking Cessation Medications and DC Order Prescriptions: New escitalopram oxalate 10 mg Tablet 10 mg PO DAILY Qty: 30 0RF trazodone 50 mg Tablet 150 mg PO HS Qty: 30 0RF pantoprazole 40 mg Tablet,Delayed Release (Dr/Ec) 40 mg PO QAM Qty: 30 0RF Continued acetaminophen [Tylenol] 325 mg Tablet 487.5 mg PO TID PRN (Reason: Pain) Rx Instructions: USE 1 1/2 TABS OF 325 MG. trazodone 150 mg Tablet 150 mg PO HS escitalopram oxalate [Lexapro] 10 mg Tablet 10 mg PO DAILY glipizide 5 mg Tablet 5 mg PO DAILY Qty: 30 0RF Changed metformin 1,000 mg Tablet 1,000 mg PO BID Qty: 60 0RF Discontinued amlodipine 2.5 mg Tablet 2.5 mg PO DAILY Rx Instructions: HOLD FOR SYSTOLIC B/P <130 nicotine 21 mg/24 hr Patch 24 Hour 1 patch TRANSDERMAL DAILY Rx Instructions: APPLY 0900, REMOVE 2100. aspirin 81 mg Tablet,Chewable 81 mg PO DAILY lisinopril 2.5 mg Tablet 7.5 mg PO DAILY Rx Instructions: GIVE 3 TABS. Discharge Orders: Discharge Order (Routine); Ordered 03/03/23 Ordered By: Aaron Coto/Other Patient Handouts: Managing Type 2 Diabetes, How to Check Your Blood Sugar, Diabetes: Meal Planning Admission Data Admit Date/Time: 02/25/23 23:03 Attending Provider: Aaron Joseph Admit Provider: Aleks Hernandez Primary Care Provider: PCP,NO Other Providers: Aleks Hernandez; Tyler Ya; Misbah Jimenez; Nahed Oliva; Betsy Jacobs; Lorelei Ambrose; Kelley Church; Lenin Sandy; Shashi Sherman; Mya Vasques; Stephanie Harper; Ramy Santos; Tomas Mojica; Aileen Churchill; Christine Cook; Mela Story; Brianna Rogers; Jose Santizo; Bob Brito; John Rsos; Radha iVllanueva; David Covarrubias Jr; Alexus Carlos
--- NOTE | 2023-03-03 18:38 | Psychiatric Consultation ---
Date of Consultation March 03, 2023 Impression / Recommendations Impression 52 y/o unhoused man with history of depressive mood symptoms, alcohol use, and methamphetamine use recently admitted psychiatrically with suicidal thoughts. He probably has a recurrent major depressive disorder, though it's difficult to establish to what degree he's had symptoms unrelated to substance use. He currently denies suicidal thoughts and reports mood is improving. He's hopeful about his plans to return to his home area and "put [his] life back together". In my opinion he does not currently present psychiatric risks sufficient to warrant psychiatric admission and is a good candidate for outpatient treatment. Overall I spent a total of 62 minutes on the floor for this consultation assessment including review of chart records, review of test results, direct evaluation of the patient [id number], counseling the patient, medication education with the patient, risk assessment, discussion with the psychiatric liaison nurse, and documentation in the electronic health record. (1) Mood disorder: Plan Continue unchanged pt's escitalopram 10 mg daily and trazodone 150 mg QHS. I've discussed with him some ways to ensure he maintains access to those medications. Psych History Identifying Data DEMOND PACHECO is a 52-year-old M with a history of depression and substance use disorder, admitted on 02/25/2023 from [facility] for UGI bleeding. Consult is by the hospitalist service for "safety pertaining to discharge". Chief Complaint "I'm doing pretty well". History of Present Illness 52 y/o man with a history of depression and substance (alcohol and methamphetamine) use disorder who recently has been in and out of psychiatric hospitals. He'd been admitted to [facility] for what calls having been "suicidal-kamilah" and was noting gradual improvement when he developed melena and was sent to the ED for assessment, then admitted here medically for further evaluation. He now seen as medically stable. Pt says his mood has continued to improve during his 6-day medical stay and that he does not think he needs to be readmitted to a psychiatric facility. Presents as cooperative, pleasant, and fairly insightful and reports a history that matches well with records. He has a plan of moving in with "a arvin's brother" while he gets back on his feet. He would like to continue escitalopram, which he reports as having been helpful in the past, and trazodone. Discussed means of accessing these medications at minimal cost (e.g., using a pricing clair such as [employer]). Past Psychiatric History Current Psychiatric Diagnosis: depression Previous Psych [facility] prior to this medical admission Do You Have Access To A Gun?: No History of Previous Suicide Attempt: No Allergies Allergy/AdvReac Type Severity Reaction Status Date / Time No Known Allergies Allergy Verified 02/25/23 19:01 Home Medications Medication Instructions Recorded Confirmed Type acetaminophen 325 mg tablet 487.5 mg PO TID PRN Pain 02/25/23 02/25/23 History (Tylenol) escitalopram oxalate 10 mg tablet 10 mg PO DAILY 02/25/23 02/25/23 History (Lexapro) trazodone 150 mg tablet 150 mg PO HS 02/25/23 02/25/23 History escitalopram oxalate 10 mg tablet 10 mg PO DAILY #30 tabs 03/03/23 Rx glipizide 5 mg tablet 5 mg PO DAILY #30 tabs 03/03/23 02/25/23 Rx metformin 1,000 mg tablet 1,000 mg PO BID #60 tabs 03/03/23 02/25/23 Rx pantoprazole 40 mg tablet,delayed 40 mg PO QAM #30 tabs 03/03/23 Rx release trazodone 50 mg tablet 150 mg (3 x 50 mg) PO HS #30 tabs 03/03/23 Rx Patient History Social History Smoking Status: Current every day smoker Tobacco Type: Cigarettes and E-cigarettes / Vaping Second Hand Exposure: Yes; Do You Dip or Chew Tobacco: No; Tobacco Cessation Education Requested by Patient: No Hx Alcohol Use: No Hx Substance Use: Yes Last Used Substance Other:: January 22 last use Preferred Language: Lao Communication Ability: Effective Kennel Supervisor Required: No Beliefs That Will Affect Care: None Current Living Situation: Alone Current Living Situation Comment: homeless Other Information That Helps Us Care for You: No Feels Safe at Home: Yes Safety Concerns: Feels Safe At This Time Assistive Devices: None Physical Exam Psychiatric: Orientation: oriented to person, oriented to place, oriented to time and cooperative Apperance: appropriately dressed and appropriately groomed Eye Contact: good eye contact Motor Behavior: no abnormal motor movements Speech: normal rate/rhythm/volume of speech Affect: euthymic affect Mood: + dysphoric mood Thought Process: linear/logical thought process and clear/coherent thought process Thought Content: reality based without delusions Suicidal Thoughts: denies suicidal thoughts, denies suicidal plan and denies suicidal intent Homicidal Thoughts: denies homicidal thoughts Hallucinations: no auditory hallucinations and no visual hallucinations Cognition: recent memory grossly intact, remote memory grossly intact, attention grossly intact and language grossly intact Estimated Intelligence: consistent with education level Insight: good insight Judgment: good judgement Vital Signs (Past 24 Hours): Last Vital Signs Temp 37.4 C 03/03/23 17:06 Pulse 66 03/03/23 17:06 Resp 16 03/03/23 17:06 BP 131/78 03/03/23 17:06 Pulse Ox 99 03/03/23 17:06 O2 Del Method Room Air 03/03/23 15:56 O2 Flow Rate 2 02/28/23 16:25 Review of Systems Psychiatric: + depression (improving on escitalopram), + abnormal sleep pattern (improving on trazodone) and + anxiety; no hopelessness, no suicidal ideation, no paranoia and no hallucinations Coding Level of Care Code [address] [facility] Intl Hosp Care Lvl 3 Diagnoses Mood disorder F39 Time Spent (min) 62
[2023-03-04] MEDS ORDERED: PANTOprazole 40 MG TAB PO SCH (09:00)
[2023-03-04] MEDS ORDERED: ESCITALOPRAM OXALATE 10 MG TAB PO SCH (09:00)
== END 2023-03-03 17:42 | disposition home or self-care (01) | DRG 378 ==
LOC: ED 18:40 → SUATTDRO 22:36 → SUPCPDRO 22:36 → EDINP 22:36 → SUATTDRO 23:03 → 2S 23:33 → 3N 02-27 18:51